=== PATIENT | female | born 2000 | race Caucasian/White ===

== ENCOUNTER 2022-08-14 10:14 | Outpatient (CLI) | payer BC, SELFPAY ==
[2022-08-14 15:27] LABS: Chlamydia DNA Amplified* NOT DETECTED (No Detected); GC DNA Amplified* NOT DETECTED (No Detected)
[2022-08-14 17:10] LABS: HIV 1/2/P24 Combo Screen* Negative (Negative)
[2022-08-17 03:02] LABS: HSV Type 1/2 Combined Ab, IgG 0.79 IV
== END 2022-08-14 10:15 | disposition home or self-care (01) ==
PROVIDERS: PCP Family Medicine; Visit Provider Family Medicine
DX: Z11.3 Encounter for screening for infections with a predominantly sexual mode of transmission (principal)
CPT/HCPCS: 86694; 86703; 87491; 87591

== ENCOUNTER 2022-11-10 16:43 | Emergency (ER) | payer BC, SELFPAY ==
[2022-11-10 16:51] VITALS: BP 130/85; PULSE 95; RESP 32; TEMP 36.6; O2SAT 98; BMI 21.1
--- NOTE | 2022-11-10 17:23 | ED.NAVMDI ---
HPI - Nausea/Vomiting/Diarrhea General Chief complaint: Nausea/Vomiting Stated complaint: Cyclical Vomiting - 12 hours of vomiting Time Seen by Provider: 11/10/22 16:50 History of Present Illness HPI Narrative: This 21-year-old female comes in with persistent vomiting over the past 12 hours. She states that she has a history of cyclical vomiting syndrome but has not had any symptoms for the past year. When asked if she uses cannabis she states that she took some alcohol last night which she says has triggered these symptoms. She has not had any fevers. She does report abdominal pain and back pain that she attributes to the recurrent vomiting. Related Data Home Medications Medication Instructions Recorded Confirmed norelgestromin 150 mcg-e.estradiol 1 patch transdermal QWEEK 07/18/22 10/09/22 35 mcg/24 hr weekly transderm patch (Xulane) tretinoin 0.025 % topical cream tube topical 07/18/22 10/09/22 Previous Rx's Medication Instructions Recorded azithromycin 250 mg tablet See Rx Instructions PO .COMPLEX #6 07/18/22 (Zithromax Z-Brian) tabs fluconazole 200 mg tablet 200 mg PO QDAY #2 tabs 07/18/22 methylphenidate HCl 10 mg tablet 10 mg PO BID #60 tabs 08/20/22 clindamycin HCl 150 mg capsule 150 mg PO TID #21 caps 10/09/22 norelgestromin 150 mcg-e.estradiol 1 patch transdermal QWEEK #12 ea 10/12/22 35 mcg/24 hr weekly transderm patch (Xulane) Allergies Allergy/AdvReac Type Severity Reaction Status Date / Time penicillin V Allergy Mild Hives Verified 11/10/22 16:51 amoxicillin Allergy Unknown Hives Verified 11/10/22 16:51 seasonal Allergy Mild sneezing, Uncoded 10/09/22 13:47 coughing, runny nose Review of Systems Status of ROS: Reports: 10 or more systems reviewed and unremarkable except as noted in History and below Narrative: Constitutional: No fevers, no weight gain or loss. Eyes: No discharge. No vision changes. HENT: No congestion, no sore throat, no ear pain. Cardiovascular: No chest pain, no palpitations. Respiratory: No shortness of breath, no wheezes, no cough. Gastrointestinal: Abdominal pain. Nausea and persistent vomiting. Genitourinary: No dysuria, no hematuria. Musculoskeletal: Normal range of motion. Skin: No rashes, no pruritis. Neurological: No dizziness, weakness, sensory change, speech change. Endo/Heme/Allergies: No bruising or bleeding. No polydipsia. Pysch: no suicidality, no anxiety, no insomnia. All other systems reviewed and are negative. [facility] Surgical History History of uvulectomy Status post tonsillectomy Social History Smoking Status: Never smoker Do you use any of these nicotine containing products: None Second hand tobacco smoke exposure: No How often do you have a drink containing alcohol: monthly or less How many standard drinks containing alcohol do you have on a typical day: 3 or 4 How often do you have six or more drinks on one occasion: Never AUDIT-C Alcohol total score: 2 Non-prescribed substance use: denies use service: No Exam Narrative: Exam Narrative: Constitutional: Well-developed, well-nourished, no acute distress. HEENT: Normocephalic, atraumatic. Neck: Normal range of motion. Nontender. Supple. Heart: Regular. No murmurs. Normal rate. Intact distal pulses. Lungs: Clear to auscultation. No chest discomfort. No wheezes, rhonchi, or rales. Abdomen: Normal bowel sounds. Diffuse tenderness throughout the abdomen. Genitalia: Deferred. Back: No midline tenderness. Normal range of motion. Extremities: Normal range of motion. No injury. Skin: Intact. No rash. Warm. No erythema or pallor. Neurologic: No altered sensation. No weakness. Alert and oriented. Psychiatric: No suicidality. No anxiety or depression. No insomnia. Nursing notes and vitals signs are reviewed. Const: Vital Signs, click to edit/add: Vital Signs - 24 hr 11/10/22 16:51 Temperature 98 F Pulse Rate [Pulse Oximeter] 95 Respiratory Rate 32 H Blood Pressure [Ri ght Upper Arm] 130/85 Pulse Oximetry 98 Oxygen Delivery Me thod Room Air Course Vital Signs Vital signs: Initial Vital Signs Temperature 98 F 11/10/22 16:51 Temperature Source Temporal Artery Scan 11/10/22 16:51 Pulse Rate 95 11/10/22 16:51 Pulse Rhythm 11/10/22 16:51 Respiratory Rate 32 H 11/10/22 16:51 Blood Pressure 130/85 11/10/22 16:51 Blood Pressure Mean 100 11/10/22 16:51 Blood Pressure Position Supine 11/10/22 16:51 Pulse Oximetry 98 11/10/22 16:51 Oxygen Delivery Method 11/10/22 16:51 Vital Signs Temperature 98 F 11/10/22 16:51 Pulse Rate 95 11/10/22 16:51 Respiratory Rate 32 H 11/10/22 16:51 Blood Pressure 130/85 11/10/22 16:51 Pulse Oximetry 98 11/10/22 16:51 Oxygen Delivery Method 11/10/22 16:51 Temperature 98 F 11/10/22 16:51 Pulse Rate 95 11/10/22 16:51 Respiratory Rate 32 H 11/10/22 16:51 Blood Pressure 130/85 11/10/22 16:51 Pulse Oximetry 98 11/10/22 16:51 Oxygen Delivery Method 11/10/22 16:51 MDM - Nausea/Vomiting/Diarrhea MDM Narrative Medical decision making narrative: This patient comes in with persistent vomiting and states that she has cyclical vomiting syndrome. She reports that she has been taking good care of herself and has not had any episodes in the past year. She took some alcohol last night and feels that this triggered these symptoms. An IV was established and labs were drawn. These returned with reassuring findings. She received a L of normal saline intravenously along with Haldol 5 mg, Zofran 4 mg, and Toradol 30 mg. This brought great relief to her symptoms. She states that she is really feeling well at this time and is okay to return home. She states that she does have Zofran at home that can be used if needed. Lab Data Labs: Lab Results 11/10/22 11/10/22 Range/Units 17:34 17:34 WBC 10.09 (4.50-11.00) K/uL RBC 4.55 (4.00-5.20) m/uL Hgb 13.1 (12.0-16.0) gm/dL Hct 38.9 (33.0-51.0) % MCV 86 (80-100) fL MCH 29 (26-34) pg MCHC 34 (32-36) gm/dL RDW Coeff of Girish 12.1 (11.5-15.5) % Plt Count 295 (140-440) K/uL Neut % (Auto) 91.9 H (42.0-72.0) % Lymph % (Auto) 6.4 L (20-44) % [place] % (Auto) 1.4 (0.0-11.0) % Eos % (Auto) 0.0 (0.0-7.0) % Baso % (Auto) 0.0 (0.0-3.0) % Neut # (Auto) 9.30 H (1.7-7.0) K/uL Lymph # (Auto) 0.60 L (0.90-2.90) K/uL [place] # (Auto) 0.10 (0.00-0.90) K/UL Eos # (Auto) 0.00 (0.00-0.50) K/uL Baso # (Auto) 0.00 (0.00-0.30) K/uL Sodium 140 (135-149) mmol/L Potassium 3.7 (3.6-5.1) mmol/L Chloride 109 (96-114) mmol/L Carbon Dioxide 13 L (20-32) mmol/L BUN 11 (5-24) mg/dL Creatinine 0.7 (0.5-1.5) mg/dL Estimated Creat Clear 120.83 Estimated GFR 125 ml/min Glucose 159 H (60-115) mg/dL Calcium 9.8 (8.4-10.6) mg/dL Total Bilirubin 0.9 (0.1-1.5) mg/dL Direct Bilirubin 0.1 (0.0-0.5) mg/dL AST 36 H (12-35) U/L ALT 40 H (4-35) U/L Alkaline Phosphatase 58 (40-150) U/L Total Protein 8.8 H (6.0-8.3) g/dL Albumin 5.1 H (3.3-5.0) g/dL Lipase 37 (23-300) U/L Discharge Plan Discharge Clinical Impression: Cyclical vomiting Patient Disposition: Home w/ Parent or Adult Condition: Improved Additional Instructions: Increase diet as tolerated. Use [id number] medicines as needed and directed. Follow up with MD or return if worsening. Prescriptions: No Action Xulane 150-35 mcg/24 hr patch weekly 1 patch transdermal QWEEK tretinoin 0.025 % cream topical azithromycin [Zithromax Z-Brian] 250 mg tablet See Rx Instructions PO .COMPLEX Qty: 6 0RF Rx Instructions: For 250 mg dose pack: take 500 mg today (day 1), then 250 mg for 4 days (days 2-5) PO fluconazole 200 mg tablet 200 mg PO QDAY Qty: 2 1RF clindamycin HCl 150 mg capsule 150 mg PO TID Qty: 21 2RF methylphenidate HCl 10 mg tablet 10 mg PO BID Qty: 60 0RF Xulane 150-35 mcg/24 hr patch weekly 1 patch transdermal QWEEK Qty: 12 4RF Rx Instructions: apply once weekly for 11 weeks of a 12-week cycle Follow Up/Referrals: Randell Fxo MD [Primary Care Provider] - Stand Alone Forms: [employer] Info Instructions
[2022-11-10] MEDS: KETOROLAC 30 MG/ML inj IVP (17:40)
[2022-11-10] MEDS: ONDANSETRON 2 MG/ML inj 4 MG IVP (17:40)
[2022-11-10] MEDS: HALOPERIDOL 5 MG/ML INJ IV (17:40)
[2022-11-10] MEDS: 0.9 % SODIUM CHLORIDE 1000 ml 1,000 ML IV (17:41)
[2022-11-10 17:42] LABS: Hematocrit 38.9 % (33.0-51.0); Hemoglobin* 13.1 gm/dL (12.0-16.0); Immature Granulocytes Abs Auto 0.03 K/uL (0.00-0.30); Immature Granulocytes Pct Auto 0.3 %; Lymphocytes Percent Auto 6.4 % (20-44); Mean Corpuscular HGB Conc 34 gm/dL (32-36); Mean Corpuscular Hemoglobin 29 pg (26-34); Mean Corpuscular Volume 86 fL (80-100); Monocytes Percent Auto 1.4 % (0.0-11.0); Neutrophils Percent Auto 91.9 % (42.0-72.0); Platelet Count* 295 K/uL (140-440); RDW Coefficient of Variation % 12.1 % (11.5-15.5); Red Blood Count 4.55 m/uL (4.00-5.20); White Blood Count* 10.09 K/uL (4.50-11.00)
[2022-11-10 17:52] LABS: Slide Review Reflex No
[2022-11-10 17:56] LABS: Albumin* 5.1 g/dL (3.3-5.0); Chloride* 109 mmol/L (96-114); Potassium* 3.7 mmol/L (3.6-5.1); Sodium* 140 mmol/L (135-149)
[2022-11-10 17:59] LABS: Alkaline Phosphatase* 58 U/L (40-150); Aspartate Amino Transferase* 36 U/L (12-35); Bilirubin Direct* 0.1 mg/dL (0.0-0.5); Bilirubin Total* 0.9 mg/dL (0.1-1.5); Blood Urea Nitrogen* 11 mg/dL (5-24); Calcium* 9.8 mg/dL (8.4-10.6); Carbon Dioxide* 13 mmol/L (20-32); Creatinine* 0.7 mg/dL (0.5-1.5); Est. Creatinine Clearance* 120.83; Estimated Glomerular Filt Rate 125 ml/min; Glucose* 159 mg/dL (60-115); Lipase* 37 U/L (23-300); Total Protein* 8.8 g/dL (6.0-8.3)
[2022-11-10 18:21] LABS: Alanine Aminotransferase* 40 U/L (4-35)
== END 2022-11-10 18:51 | disposition home or self-care (01) ==
PROVIDERS: Emergency Provider Emergency Medicine Emergency Medical Services; PCP Family Medicine
DX: R11.15 Cyclical vomiting syndrome unrelated to migraine (principal)
CPT/HCPCS: 36415; 80048; 80076; 83690; 85025; 96360; 96374; 96375; 99284; J1630; J1885; J2405; J7030

== ENCOUNTER 2023-03-27 07:00 | Emergency (ER) | payer BC, SELFPAY ==
[2023-03-27 07:04] VITALS: BP 126/80; PULSE 107; RESP 16; TEMP 37.1; O2SAT 98; BMI 20.5
--- NOTE | 2023-03-27 07:36 | ED_ITS ---
HPI - General Adult General Time Seen by Provider: 07:36 Date Seen: 04/10/23 Chief complaint: Unspecified Complaint, Adult Stated complaint: hemorrhoids Time Seen by Provider: 03/27/23 07:27 Source: patient, RN notes reviewed and old records reviewed Mode of arrival: ambulatory Limitations: no limitations History of Present Illness HPI narrative: 22-year-old female who comes in today with concern for painful hemorrhoid. Patient started having increased pain yesterday. Has had hemorrhoids in the past but says this feels different. Denies constipation or diarrhea. Has not taken anything for this. She initially said that the hemorrhoid was on ?the vaginal wall and when asked to clarify set that the hemorrhoid was on the front side of the rectum. Related Data Home Medications Medication Instructions Recorded Confirmed norelgestromin 150 mcg-e.estradiol 1 patch transdermal QWEEK 07/18/22 03/27/23 35 mcg/24 hr weekly transderm patch (Xulane) tretinoin 0.025 % topical cream tube topical 07/18/22 10/09/22 tramadol 03/27/23 Previous Rx's Medication Instructions Recorded azithromycin 250 mg tablet See Rx Instructions PO .COMPLEX #6 07/18/22 (Zithromax Z-Brian) tabs fluconazole 200 mg tablet 200 mg PO QDAY #2 tabs 07/18/22 methylphenidate HCl 10 mg tablet 10 mg PO BID #60 tabs 08/20/22 clindamycin HCl 150 mg capsule 150 mg PO TID #21 caps 10/09/22 norelgestromin 150 mcg-e.estradiol 1 patch transdermal QWEEK #12 ea 10/12/22 35 mcg/24 hr weekly transderm patch (Xulane) hydrocortisone-pramoxine 2.5 %-1 % 1 applic [place] QID PRN #30 grams 03/27/23 rectal cream (Analpram-HC) lidocaine 5 % topical cream 1 applic topical QID PRN pain #15 03/27/23 grams Allergies Allergy/AdvReac Type Severity Reaction Status Date / Time penicillin V Allergy Mild Hives Verified 03/27/23 07:08 amoxicillin Allergy Unknown Hives Verified 03/27/23 07:08 seasonal Allergy Mild sneezing, Uncoded 10/09/22 13:47 coughing, runny nose PFSH PFSH Surgical History History of uvulectomy ?Z90.89 - Acquired absence of other organs (ICD-10) Status post tonsillectomy ?Z90.89 - Acquired absence of other organs (ICD-10) Social History Smoking Status: Never smoker Do you use any of these nicotine containing products: None Second hand tobacco smoke exposure: No How often do you have a drink containing alcohol: 2-4 times a month How many standard drinks containing alcohol do you have on a typical day: 3 or 4 How often do you have six or more drinks on one occasion: Never AUDIT-C Alcohol total score: 3 Non-prescribed substance use: denies use service: No Exam Narrative: Exam Narrative: General: well nourished , NAD Head: Atraumatic and normocephalic ENT: External ears and external nose are normal Eyes: Conjunctiva clear, pupils are equal reactive, external ocular motions are intact Neck: Full spontaneous range of motion of the neck Lungs: No respiratory distress Musculoskeletal: No tenderness or deformity Neurologic: No gross focal neurologic deficits Skin: No rashes Psych: Mood and affect are appropriate : Two 3-4 mm external hemorrhoids, one anterior and one posterior. The anterior hemorrhoid is quite tender with no discoloration Const: Vital Signs, click to edit/add: Vital Signs - 24 hr 03/27/23 07:04 Temperature 98.7 F Pulse Rate [Left P ulse Oximeter] 107 H Respiratory Rate 16 Blood Pressure [Ri ght Upper Arm] 126/80 Pulse Oximetry 98 Oxygen Delivery Me thod Room Air Course Course Hospital Course: Patient seen and examined, prior records are reviewed. Patient presents with concern about a painful hemorrhoid. On exam, there is a small anterior hemorrhoid that is quite tender and somewhat firm. Discussed continued symptomatic and conservative treatment of this. Patient was quite upset. She initially indicated that she felt like I was not listening to her when she said she had a hemorrhoid on the vaginal wall. I discussed with her that I would ask for clarification because hemorrhoids do not occur in the vagina and if her pain was actually in the vaginal area, would represent a different problem such as a brought line gland abscess or vaginal hematoma. She also asked about other t reatment for this hemorrhoid including banding, we discussed that this is a treatment for chronic hemorrhoids and not acutely done in the emergency department. Could consider excision of this hemorrhoid but given the size and timeline, conservative treatment is more appropriate this time. She will be referred to surgery clinic for follow-up treatment. Vital Signs Vital signs: Initial Vital Signs Temperature 98.7 F 03/27/23 07:04 Temperature Source Temporal Artery Scan 03/27/23 07:04 Pulse Rate 107 H 03/27/23 07:04 Respiratory Rate 16 03/27/23 07:04 Blood Pressure 126/80 03/27/23 07:04 Blood Pressure Mean 95 03/27/23 07:04 Blood Pressure Position Standing 03/27/23 07:04 Pulse Oximetry 98 03/27/23 07:04 Oxygen Delivery Method Room Air 03/27/23 07:04 Vital Signs Temperature 98.7 F 03/27/23 07:04 Pulse Rate 107 H 03/27/23 07:04 Respiratory Rate 16 03/27/23 07:04 Blood Pressure 126/80 03/27/23 07:04 Pulse Oximetry 98 03/27/23 07:04 Oxygen Delivery Method Room Air 03/27/23 07:04 Temperature 98.7 F 03/27/23 07:04 Pulse Rate 107 H 03/27/23 07:04 Respiratory Rate 16 03/27/23 07:04 Blood Pressure 126/80 03/27/23 07:04 Pulse Oximetry 98 03/27/23 07:04 Oxygen Delivery Method Room Air 03/27/23 07:04 Discharge Plan Discharge Clinical Impression: External hemorrhoid, thrombosed Patient Disposition: Home, Self-Care Condition: Stable Instructions: Hemorrhoids (DC) Additional Instructions: Sitz baths and ice packs as directed. [facility] at [phone] to schedule a follow-up appointment Activity Level: Activity as Tolerated Discharge Diet: Regular Prescriptions: New lidocaine 5 % cream 1 applic topical QID PRN (Reason: pain) Qty: 15 0RF hydrocortisone-pramoxine [Analpram-HC] 2.5-1 % cream 1 applic FL QID PRNQty: 30 0RF No Action Xulane 150-35 mcg/24 hr patch weekly 1 patch transdermal QWEEK tretinoin 0.025 % cream topical azithromycin [Zithromax Z-Brian] 250 mg tablet See Rx Instructions PO .COMPLEX Qty: 6 0RF Rx Instructions: For 250 mg dose pack: take 500 mg today (day 1), then 250 mg for 4 days (days 2-5) PO fluconazole 200 mg tablet 200 mg PO QDAY Qty: 2 1RF clindamycin HCl 150 mg capsule 150 mg PO TID Qty: 21 2RF tramadol methylphenidate HCl 10 mg tablet 10 mg PO BID Qty: 60 0RF Xulane 150-35 mcg/24 hr patch weekly 1 patch transdermal QWEEK Qty: 12 4RF Rx Instructions: apply once weekly for 11 weeks of a 12-week cycle Follow Up/Referrals: Randell Fox MD [Primary Care Provider] - Stand Alone Forms: [employer] Info Instructions
--- NOTE | 2023-03-27 08:00 | ED.NURSE ---
Incident Response Coordinator did accompany Dr. Bauman for Pt exam.
== END 2023-03-27 08:12 | disposition home or self-care (01) ==
LOC: ED 08:08
PROVIDERS: Emergency Provider Family Medicine; PCP Family Medicine
DX: K64.5 Perianal venous thrombosis (principal)
CPT/HCPCS: 99283

== ENCOUNTER 2023-04-08 08:01 | Emergency (ER) | payer BC, SELFPAY ==
[2023-04-08 08:10] VITALS: BP 153/71; PULSE 90; RESP 16; TEMP 36.2; O2SAT 100; BMI 20.5
--- NOTE | 2023-04-08 08:24 | ED_ITS ---
HPI - Nausea/Vomiting/Diarrhea General Chief complaint: Nausea/Vomiting Stated complaint: [facility] episode, vomiting Time Seen by Provider: 04/08/23 08:05 History of Present Illness HPI Narrative: This 22-year-old female comes in with persistent vomiting. She has a history of cyclical vomiting syndrome. She states that she does use marijuana recreationally. She states now that she has also had some diarrhea. Related Data Home Medications Medication Instructions Recorded Confirmed tretinoin 0.025 % topical cream tube topical 07/18/22 04/04/23 Previous Rx's Medication Instructions Recorded methylphenidate HCl 10 mg tablet 10 mg PO BID #60 tabs 08/20/22 norelgestromin 150 mcg-e.estradiol 1 patch transdermal QWEEK #12 ea 10/12/22 35 mcg/24 hr weekly transderm patch (Xulane) tramadol 50 mg tablet 50 mg PO Q8H PRN pain #10 tabs 03/28/23 triamcinolone acetonide 0.1 % 1 applic topical BID #15 grams 03/28/23 topical cream lidocaine 5 % topical cream 1 applic topical QID PRN pain #15 03/29/23 grams hydrocortisone-pramoxine 2.5 %-1 % 1 applic [place] QID PRN hemorrhoids 04/04/23 rectal cream (Analpram-HC) #30 grams sennosides 8.6 mg capsule (senna) 8.6 mg PO BID PRN constipation #90 04/04/23 caps tramadol 50 mg tablet 50 mg PO Q8H PRN pain #10 tabs 04/04/23 Allergies Allergy/AdvReac Type Severity Reaction Status Date / Time penicillin V Allergy Mild Hives Verified 04/04/23 15:01 amoxicillin Allergy Unknown Hives Verified 04/04/23 15:01 seasonal Allergy Mild sneezing, Uncoded 04/04/23 15:01 coughing, runny nose Review of Systems Status of ROS: Reports: 10 or more systems reviewed and unremarkable except as noted in History and below Narrative: Constitutional: No fevers, no weight gain or loss. Eyes: No discharge. No vision changes. HENT: No congestion, no sore throat, no ear pain. Cardiovascular: No chest pain, no palpitations. Respiratory: No shortness of breath, no wheezes, no cough. Gastrointestinal: Persistent vomiting. Genitourinary: No dysuria, no hematuria. Musculoskeletal: Normal range of motion. Skin: No rashes, no pruritis. Neurological: No dizziness, weakness, sensory change, speech change. Endo/Heme/Allergies: No bruising or bleeding. No polydipsia. Pysch: no suicidality, no anxiety, no insomnia. All other systems reviewed and are negative. [facility] Medical History (Updated 04/08/23 @ 09:42 by Randell Whiteside MD) Vulvovaginitis ?N76.0 - Acute vaginitis (ICD-10) Surgical History History of uvulectomy ?Z90.89 - Acquired absence of other organs (ICD-10) Status post tonsillectomy ?Z90.89 - Acquired absence of other organs (ICD-10) Social History Smoking Status: Never smoker Do you use any of these nicotine containing products: None Second hand tobacco smoke exposure: No How often do you have a drink containing alcohol: 2-4 times a month How many standard drinks containing alcohol do you have on a typical day: 3 or 4 How often do you have six or more drinks on one occasion: Never AUDIT-C Alcohol total score: 3 Non-prescribed substance use: denies use service: No Exam Narrative: Exam Narrative: Constitutional: Well-developed, well-nourished, no acute distress. HEENT: Normocephalic, atraumatic. Neck: Normal range of motion. Nontender. Supple. Heart: Intact distal pulses. Lungs: No chest discomfort. No wheezes, rhonchi, or rales. Abdomen: Diffuse abdominal pain. Persistent vomiting and nausea. Back: Normal range of motion. Extremities: Normal range of motion. No injury. Skin: Intact. No rash. Warm. No erythema or pallor. Neurologic: No altered sensation. No weakness. Alert and oriented. Psychiatric: No suicidality. No anxiety or depression. No insomnia. Nursing notes and vitals signs are reviewed. Const: Vital Signs, click to edit/add: Vital Signs - 24 hr 04/08/23 08:10 Temperature 97.1 F L Pulse Rate [Left P ulse Oximeter] 90 Respiratory Rate 16 Blood Pressure [Le ft Upper Arm] 153/71 H Pulse Oximetry 100 Oxygen Delivery Me thod Room Air Course Vital Signs Vital signs: Initial Vital Signs Temperature 97.1 F L 04/08/23 08:10 Temperature Source Temporal Artery Scan 04/08/23 08:10 Pulse Rate 90 04/08/23 08:10 Pulse Rhythm Regular 04/08/23 08:10 Respiratory Rate 16 04/08/23 08:10 Blood Pressure 153/71 H 04/08/23 08:10 Blood Pressure Mean 98 04/08/23 08:10 Blood Pressure Position Sitting 04/08/23 08:10 Pulse Oximetry 100 04/08/23 08:10 Oxygen Delivery Method Room Air 04/08/23 08:10 Vital Signs Temperature 97.1 F L 04/08/23 08:10 Pulse Rate 90 04/08/23 08:10 Respiratory Rate 16 04/08/23 08:10 Blood Pressure 153/71 H 04/08/23 08:10 Pulse Oximetry 100 04/08/23 08:10 Oxygen Delivery Method Room Air 04/08/23 08:10 Temperature 97.1 F L 04/08/23 08:10 Pulse Rate 90 04/08/23 08:10 Respiratory Rate 16 04/08/23 08:10 Blood Pressure 153/71 H 04/08/23 08:10 Pulse Oximetry 100 04/08/23 08:10 Oxygen Delivery Method Room Air 04/08/23 08:10 MDM - Nausea/Vomiting/Diarrhea MDM Narrative Medical decision making narrative: This patient comes in with recurrent episode of cyclical vomiting syndrome. She does use marijuana and has had symptoms like this in the past. An IV was established where she received a L of normal saline and 5 mg of Haldol. This brought great relief to her symptoms. She states that she has had this in the past with good results. I stated that it is likely the marijuana that is triggering symptoms like this. Lab results returned with reassuring findings. The patient states that she feels okay to return home. Lab Data Labs: Lab Results 04/08/23 Range/Units 08:35 WBC 13.64 H (4.50-11.00) K/uL RBC 5.01 (4.00-5.20) m/uL Hgb 14.4 (12.0-16.0) gm/dL Hct 42.9 (33.0-51.0) % MCV 86 (80-100) fL MCH 29 (26-34) pg MCHC 34 (32-36) gm/dL RDW Coeff of Girish 11.9 (11.5-15.5) % Plt Count 407 (140-440) K/uL Neut % (Auto) 81.9 H (42.0-72.0) % Lymph % (Auto) 14.2 L (20-44) % [place] % (Auto) 3.4 (0.0-11.0) % Eos % (Auto) 0.2 (0.0-7.0) % Baso % (Auto) 0.1 (0.0-3.0) % Neut # (Auto) 11.20 H (1.7-7.0) K/uL Lymph # (Auto) 1.90 (0.90-2.90) K/uL [place] # (Auto) 0.50 (0.00-0.90) K/UL Eos # (Auto) 0.00 (0.00-0.50) K/uL Baso # (Auto) 0.00 (0.00-0.30) K/uL Sodium 140 (135-149) mmol/L Potassium 3.7 (3.6-5.1) mmol/L Chloride 103 (96-114) mmol/L Carbon Dioxide 20 (20-32) mmol/L BUN 12 (5-24) mg/dL Creatinine 0.8 (0.5-1.5) mg/dL Estimated Creat Clear 104.82 Estimated GFR 105 ml/min Glucose 141 H (60-115) mg/dL Calcium 10.6 (8.4-10.6) mg/dL Discharge Plan Discharge Clinical Impression: Cyclical vomiting syndrome Patient Disposition: Home, Self-Care Condition: Improved Additional Instructions: Increase diet as tolerated. Avoid cannabis products. Follow up with MD return if worsening. Prescriptions: No Action tretinoin 0.025 % cream topical triamcinolone acetonide 0.1 % cream 1 applic topical BID Qty: 15 0RF tramadol 50 mg tablet 50 mg PO Q8H PRN (Reason: pain) Qty: 10 0RF lidocaine 5 % cream 1 applic topical QID PRN (Reason: pain) Qty: 15 2RF hydrocortisone-pramoxine [Analpram-HC] 2.5-1 % cream 1 applic [place] QID PRN (Reason: hemorrhoids) Qty: 30 0RF tramadol 50 mg tablet 50 mg PO Q8H PRN (Reason: pain) Qty: 10 0RF senna 8.6 mg capsule 8.6 mg PO BID PRN (Reason: constipation) Qty: 90 0RF methylphenidate HCl 10 mg tablet 10 mg PO BID Qty: 60 0RF Xulane 150-35 mcg/24 hr patch weekly 1 patch transdermal QWEEK Qty: 12 4RF Rx Instructions: apply once weekly for 11 weeks of a 12-week cycle Follow Up/Referrals: Randell Fox MD [Primary Care Provider] - Stand Alone [facility] Info [facility]
[2023-04-08] MEDS: HALOPERIDOL 5 MG/ML INJ IV (08:45)
[2023-04-08] MEDS: 0.9 % SODIUM CHLORIDE 1000 ml 1,000 ML IV (08:45)
[2023-04-08 08:57] LABS: Basophils Percent Auto 0.1 % (0.0-3.0); Eosinophils Percent Auto 0.2 % (0.0-7.0); Hematocrit 42.9 % (33.0-51.0); Hemoglobin* 14.4 gm/dL (12.0-16.0); Immature Granulocytes Pct Auto 0.2 %; Lymphocytes Percent Auto 14.2 % (20-44); Mean Corpuscular HGB Conc 34 gm/dL (32-36); Mean Corpuscular Hemoglobin 29 pg (26-34); Mean Corpuscular Volume 86 fL (80-100); Monocytes Percent Auto 3.4 % (0.0-11.0); Neutrophils Percent Auto 81.9 % (42.0-72.0); Platelet Count* 407 K/uL (140-440); RDW Coefficient of Variation % 11.9 % (11.5-15.5); Red Blood Count 5.01 m/uL (4.00-5.20); White Blood Count* 13.64 K/uL (4.50-11.00)
[2023-04-08 09:03] LABS: Slide Review Reflex No
[2023-04-08 09:12] LABS: Chloride* 103 mmol/L (96-114); Potassium* 3.7 mmol/L (3.6-5.1); Sodium* 140 mmol/L (135-149)
[2023-04-08 09:15] LABS: Blood Urea Nitrogen* 12 mg/dL (5-24); Carbon Dioxide* 20 mmol/L (20-32); Creatinine* 0.8 mg/dL (0.5-1.5); Est. Creatinine Clearance* 104.82; Estimated Glomerular Filt Rate 105 ml/min; Glucose* 141 mg/dL (60-115)
[2023-04-08 09:16] LABS: Calcium* 10.6 mg/dL (8.4-10.6)
--- NOTE | 2023-04-08 09:40 | ED.NURSE ---
Patient up to commode independently, voided and small formed bowel movement.
[2023-04-08 09:41] VITALS: BP 138/88; PULSE 78; RESP 16; O2SAT 98
== END 2023-04-08 10:26 | disposition home or self-care (01) ==
PROVIDERS: Emergency Provider Emergency Medicine Emergency Medical Services; PCP Family Medicine
DX: R11.15 Cyclical vomiting syndrome unrelated to migraine (principal)
CPT/HCPCS: 36415; 80048; 85025; 96374; 99283; 99284; J1630; J7030

== ENCOUNTER 2023-06-01 14:02 | Emergency (ER) | payer BC, SELFPAY ==
[2023-06-01 14:18] VITALS: BP 155/100; PULSE 86; RESP 18; TEMP 36.6; O2SAT 100; BMI 21.3
[2023-06-01 14:48] LABS: Basophils Percent Auto 0.1 % (0.0-3.0); Hematocrit 41.4 % (33.0-51.0); Hemoglobin* 13.8 gm/dL (12.0-16.0); Immature Granulocytes Pct Auto 0.9 %; Lymphocytes Percent Auto 8.4 % (20-44); Mean Corpuscular HGB Conc 33 gm/dL (32-36); Mean Corpuscular Hemoglobin 29 pg (26-34); Mean Corpuscular Volume 86 fL (80-100); Monocytes Percent Auto 3.5 % (0.0-11.0); Neutrophils Percent Auto 87.1 % (42.0-72.0); Platelet Count* 204 K/uL (140-440); RDW Coefficient of Variation % 12.7 % (11.5-15.5); Red Blood Count 4.81 m/uL (4.00-5.20); White Blood Count* 14.08 K/uL (4.50-11.00)
[2023-06-01] MEDS: LACTATED RINGERS 1000 ML 1,000 ML IV (14:52)
[2023-06-01] MEDS: HALOPERIDOL 5 MG/ML INJ IV (14:52)
[2023-06-01 15:00] LABS: Chloride* 107 mmol/L (96-114); Sodium* 138 mmol/L (135-149)
[2023-06-01 15:01] LABS: Potassium* 4.1 mmol/L (3.6-5.1)
[2023-06-01 15:03] LABS: Anion Gap 17 mEq/L (7-15); Carbon Dioxide* 14 mmol/L (20-32); Creatinine* 0.7 mg/dL (0.5-1.5); Est. Creatinine Clearance* 124.23; Estimated Glomerular Filt Rate 124 ml/min
[2023-06-01 15:04] LABS: Blood Urea Nitrogen* 11 mg/dL (5-24); Calcium* 9.8 mg/dL (8.4-10.6); Glucose* 182 mg/dL (60-115)
[2023-06-01 15:06] LABS: Slide Review Reflex Yes
--- NOTE | 2023-06-01 15:07 | ED_ITS ---
HPI - General Adult General Date Seen: 06/01/23 Chief complaint: Nausea/Vomiting Stated complaint: Vomiting Time Seen by Provider: 06/01/23 14:20 Source: patient Mode of arrival: ambulatory Limitations: no limitations History of Present Illness HPI narrative: Patient is a 22-year-old female with a history of gastroparesis and cannabinoid hyperemesis syndrome presented to [facility] for nausea and vomiting. Symptoms have been going on for the past 8 hours. All of his speaking to her she spent the entire time dry heaving. She has not been to eat or drink anything. She has tried her home Zofran could could not keep the pills down. When I asked her if she smoked anything she became angry with me is that THC. I asked her how much and she responded ?I do not Wanna fucking talk about it ?within states she knows for sure is her gastroparesis causing the symptoms. S denies chest pain, shortness of breath, headache, dizziness, dysuria. Patient has been to this emergency department several times in the past with similar symptoms Related Data Home Medications Medication Instructions Recorded Confirmed tretinoin 0.025 % topical cream tube topical 07/18/22 04/04/23 Previous Rx's Medication Instructions Recorded methylphenidate HCl 10 mg tablet 10 mg PO BID #60 tabs 08/20/22 tramadol 50 mg tablet 50 mg PO Q8H PRN pain #10 tabs 03/28/23 triamcinolone acetonide 0.1 % 1 applic topical BID #15 grams 03/28/23 topical cream lidocaine 5 % topical cream 1 applic topical QID PRN pain #15 03/29/23 grams hydrocortisone-pramoxine 2.5 %-1 % 1 applic NM QID PRN hemorrhoids 04/04/23 rectal cream (Analpram-HC) #30 grams sennosides 8.6 mg capsule (senna) 8.6 mg PO BID PRN constipation #90 04/04/23 caps tramadol 50 mg tablet 50 mg PO Q8H PRN pain #10 tabs 04/04/23 norelgestromin 150 mcg-e.estradiol 1 patch transdermal QWEEK #12 ea 04/12/23 35 mcg/24 hr weekly transderm patch (Xulane) Allergies Allergy/AdvReac Type Severity Reaction Status Date / Time penicillin V Allergy Mild Hives Verified 04/04/23 15:01 amoxicillin Allergy Unknown Hives Verified 04/04/23 15:01 seasonal Allergy Mild sneezing, Uncoded 04/04/23 15:01 coughing, runny nose Review of Systems Status of ROS: Reports: 10 or more systems reviewed and unremarkable except as noted in History and below [facility] Medical History Vulvovaginitis ?N76.0 - Acute vaginitis (ICD-10) Surgical History History of uvulectomy ?Z90.89 - Acquired absence of other organs (ICD-10) Status post tonsillectomy ?Z90.89 - Acquired absence of other organs (ICD-10) Social History Smoking Status: Never smoker Do you use any of these nicotine containing products: None Second hand tobacco smoke exposure: No How often do you have a drink containing alcohol: 2-4 times a month How many standard drinks containing alcohol do you have on a typical day: 3 or 4 How often do you have six or more drinks on one occasion: Never AUDIT-C Alcohol total score: 3 Non-prescribed substance use: denies use service: No Exam Narrative: Exam Narrative: Const: Well-nourished, Well-developed, in moderate distress. Is current the retching Eyes: PERRL, no conjunctival injection, and symmetrical lids ENMT: Atraumatic external nose and ears. Moist mucous membranes. Neck: Symmetric, trachea midline, No thyromegaly. CVS: RRR, No murmurs or gallops. Peripheral pulses 2+ and equal in all extremities RESP: Unlabored respiratory effort. Clear to auscultation bilaterally. GI: Nontender/Nondistended, No rebound or guarding. MSK:Extremities w/o deformity, Normal Active ROM Skin: Warm, Dry. No rashes or lesions. Neuro: Normal Muscle tone, No focal neurological deficits. Psych: Awake, Alert, & Oriented x3. Appropriate mood and affect. Const: Vital Signs, click to edit/add: Vital Signs - 24 hr 06/01/23 14:18 Temperature 97.8 F Pulse Rate [Right Pulse Oximeter] 86 Respiratory Rate 18 Blood Pressure [Ri ght Upper Arm] 155/100 H Pulse Oximetry 100 Oxygen Delivery Me thod Room Air Course Vital Signs Vital signs: Initial Vital Signs Temperature 97.8 F 06/01/23 14:18 Temperature Source Temporal Artery Scan 06/01/23 14:18 Pulse Rate 86 06/01/23 14:18 Respiratory Rate 18 06/01/23 14:18 Blood Pressure 155/100 H 06/01/23 14:18 Blood Pressure Mean 118 H 06/01/23 14:18 Blood Pressure Position Sitting 06/01/23 14:18 Pulse Oximetry 100 06/01/23 14:18 Oxygen Delivery Method Room Air 06/01/23 14:18 Vital Signs Temperature 97.8 F 06/01/23 14:18 Pulse Rate 86 06/01/23 14:18 Respiratory Rate 18 06/01/23 14:18 Blood Pressure 155/100 H 06/01/23 14:18 Pulse Oximetry 100 06/01/23 14:18 Oxygen Delivery Method Room Air 06/01/23 14:18 Temperature 97.8 F 06/01/23 14:18 Pulse Rate 86 06/01/23 14:18 Respiratory Rate 18 06/01/23 14:18 Blood Pressure 155/100 H 06/01/23 14:18 Pulse Oximetry 100 06/01/23 14:18 Oxygen Delivery Method Room Air 06/01/23 14:18 Medical Decision Making [facility] Narrative Medical decision making narrative: Patient's 19st female presenting for an hours of nausea and vomiting. History of gastroparesis and cannabinoid hyperemesis syndrome. Denies tried speaking about marijuana use taking upset with me in says is all due to her gastr oparesis. Tried to explain the can wait can worsen the gastroparesis but she would not listen to me. We will give her Haldol for her symptoms and that has helped every time in the past. Also ordered CBC, BMP, serum test. Her lab work returned showing a white count of 14.0 and is likely secondary to the retching. She also also given a L of normal saline possible dehydration. BMP showed no concerning abnormalities and test was negative. His symptoms resolved after the although she feels good with discharge. She will be discharged home is agreeable to this plan. Lab Data Labs: Lab Results 06/01/23 Range/Units 14:44 WBC 14.08 H (4.50-11.00) K/uL RBC 4.81 (4.00-5.20) m/uL Hgb 13.8 (12.0-16.0) gm/dL Hct 41.4 (33.0-51.0) % MCV 86 (80-100) fL MCH 29 (26-34) pg MCHC 33 (32-36) gm/dL RDW Coeff of Girish 12.7 (11.5-15.5) % Plt Count 204 (140-440) K/uL Neut % (Auto) 87.1 H (42.0-72.0) % Lymph % (Auto) 8.4 L (20-44) % [place] % (Auto) 3.5 (0.0-11.0) % Eos % (Auto) 0.0 (0.0-7.0) % Baso % (Auto) 0.1 (0.0-3.0) % Neut # (Auto) 12.30 H (1.7-7.0) K/uL Lymph # (Auto) 1.20 (0.90-2.90) K/uL [place] # (Auto) 0.50 (0.00-0.90) K/UL Eos # (Auto) 0.00 (0.00-0.50) K/uL Baso # (Auto) 0.00 (0.00-0.30) K/uL Abs Immat Gran (auto) 0.10 (0.00-0.30) K/uL Imm/Tot Granulo (auto) 0.9 % Diff Slide Review Acceptable Review (Acceptable) Sodium 138 (135-149) mmol/L Potassium 4.1 (3.6-5.1) mmol/L Chloride 107 (96-114) mmol/L Carbon Dioxide 14 L (20-32) mmol/L Anion Gap 17 H (7-15) mEq/L BUN 11 (5-24) mg/dL Creatinine 0.7 (0.5-1.5) mg/dL Estimated Creat Clear 124.23 Estimated GFR 124 ml/min Glucose 182 H (60-115) mg/dL Calcium 9.8 (8.4-10.6) mg/dL HCG, Qual Negative (Negative) Discharge Plan Discharge Clinical Impression: Cannabinoid hyperemesis syndrome Nausea & vomiting Qualifiers: Vomiting type: unspecified Qualified Code(s): R11.2 - Nausea with vomiting, unspecified Patient Disposition: Home, Self-Care Condition: Stable Instructions: Cannabis Use Disorder (ED) Additional Instructions: Is symptoms are likely secondary to cannabinoid hyperemesis syndrome. Excessive marijuana use can leave the gastroparesis and thus making his symptoms worse. I recommended you abstain from all cannabinoids at this time. Follow up with the primary care provider. Take the Farrah as soon as he started feeling nauseated again to stay ahead of the nausea. Activity Level: No Restrictions Discharge Diet: Regular Prescriptions: No Action tretinoin 0.025 % cream topical triamcinolone acetonide 0.1 % cream 1 applic topical BID Qty: 15 0RF tramadol 50 mg tablet 50 mg PO Q8H PRN (Reason: pain) Qty: 10 0RF lidocaine 5 % cream 1 applic topical QID PRN (Reason: pain) Qty: 15 2RF hydrocortisone-pramoxine [Analpram-HC] 2.5-1 % cream 1 applic NM QID PRN (Reason: hemorrhoids) Qty: 30 0RF tramadol 50 mg tablet 50 mg PO Q8H PRN (Reason: pain) Qty: 10 0RF senna 8.6 mg capsule 8.6 mg PO BID PRN (Reason: constipation) Qty: 90 0RF methylphenidate HCl 10 mg tablet 10 mg PO BID Qty: 60 0RF Xulane 150-35 mcg/24 hr patch weekly 1 patch transdermal QWEEK Qty: 12 4RF Rx Instructions: apply once weekly for 11 weeks of a 12-week cycle Follow Up/Referrals: Randell Fox MD [Primary Care Provider] - Stand Alone Forms: [employer] Info Instructions
[2023-06-01 15:25] LABS: Slide Review Acceptable Review (Acceptable)
[2023-06-01 15:46] LABS: HCG Qualitative Serum* Negative (Negative)
== END 2023-06-01 16:28 | disposition home or self-care (01) ==
LOC: ED 16:19
PROVIDERS: Emergency Provider Student in an Organized Health Care Education/Training Program; PCP Family Medicine
DX: R11.2 Nausea with vomiting, unspecified (principal)
CPT/HCPCS: 36415; 80048; 84703; 85025; 96374; 99283; 99284; J1630; J7120

== ENCOUNTER 2023-11-18 10:27 | Emergency (ER) | payer BC, SELFPAY ==
[2023-11-18 10:31] VITALS: BP 146/89; PULSE 112; RESP 18; TEMP 37.1; O2SAT 98; BMI 21.3
--- NOTE | 2023-11-18 10:51 | ED.NAVMDI ---
HPI - Nausea/Vomiting/Diarrhea General Time Seen by Provider: 10:52 Date Seen: 11/18/23 Chief complaint: Nausea/Vomiting Stated complaint: CVS Time Seen by Provider: 11/18/23 10:43 Source: patient and RN notes reviewed Mode of arrival: ambulatory Limitations: no limitations History of Present Illness HPI Narrative: This 22-year-old female is ambulatory into the ER with history of sickle vomiting, gastroparesis. Her trigger was drinking alcohol Saturday night, she has been throwing up since then. Yesterday she did IV liquid, potassium, note she would still throw some of it up but felt that this helped. She started vomiting again this morning. She did sleep 6 hours last night. She is not as bad as what she normally is. She has Zofran at home but feels that does not work when she is sick like this. When she comes in, typically will get IV Haldol and Zofran. She states the Haldol will make her muscles twitch for about 4 days after use, does not feel like it works all that well either. We discussed use of Zyprexa, reviewed with her that I typically use Zyprexa here. Often times will not even need to use Zofran with the Zyprexa. She would like to try this. No pain, no fevers. MD elicited complaint: nausea and vomiting Related Data Home Medications Medication Instructions Recorded Confirmed tretinoin 0.025 % topical cream tube topical 07/18/22 04/04/23 Previous Rx's Medication Instructions Recorded methylphenidate HCl 10 mg tablet 10 mg PO BID #60 tabs 08/20/22 tramadol 50 mg tablet 50 mg PO Q8H PRN pain #10 tabs 03/28/23 triamcinolone acetonide 0.1 % 1 applic topical BID #15 grams 03/28/23 topical cream lidocaine 5 % topical cream 1 applic topical QID PRN pain #15 03/29/23 grams hydrocortisone-pramoxine 2.5 %-1 % 1 applic MS QID PRN hemorrhoids 04/04/23 rectal cream (Analpram-HC) #30 grams sennosides 8.6 mg capsule (senna) 8.6 mg PO BID PRN constipation #90 04/04/23 caps tramadol 50 mg tablet 50 mg PO Q8H PRN pain #10 tabs 04/04/23 norelgestromin 150 mcg-e.estradiol 1 patch transdermal QWEEK #12 ea 04/12/23 35 mcg/24 hr weekly transderm patch (Xulane) olanzapine 5 mg disintegrating 5 mg PO BID PRN #10 tabs 11/18/23 tablet Allergies Allergy/AdvReac Type Severity Reaction Status Date / Time penicillin V Allergy Mild Hives Verified 04/04/23 15:01 amoxicillin Allergy Unknown Hives Verified 04/04/23 15:01 seasonal Allergy Mild sneezing, Uncoded 04/04/23 15:01 coughing, runny nose Review of Systems Status of ROS: Reports: 6 or more systems reviewed and unremarkable except as noted in History and below [facility] Medical History Vulvovaginitis ?N76.0 - Acute vaginitis (ICD-10) Surgical History History of uvulectomy ?Z90.89 - Acquired absence of other organs (ICD-10) Status post tonsillectomy ?Z90.89 - Acquired absence of other organs (ICD-10) Social History Smoking Status: Never smoker Do you use any of these nicotine containing products: None Second hand tobacco smoke exposure: No How often do you have a drink containing alcohol: 2-4 times a month How many standard drinks containing alcohol do you have on a typical day: 3 or 4 How often do you have six or more drinks on one occasion: Never AUDIT-C Alcohol total score: 3 Non-prescribed substance use: denies use service: No Exam Const: Vital Signs, click to edit/add: Vital Signs - 24 hr 11/18/23 10:31 11/18/23 13:13 11/18/23 13:17 Temperature 98.7 F 98.0 F Pulse Rate [Pulse Oximeter] 112 H 75 Respiratory Rate 18 16 Blood Pressure [Le ft Upper Arm] 146/89 H 140/80 H Pulse Oximetry 98 97 Oxygen Delivery Me thod Room Air Room Air This 22-year-old female is very pleasant, alert, interactive, no apparent distress. Sclera clear, symmetrical facial function. Speech normal, able speak in complete sentences. Neck is supple. Lungs clear without wheezing or crackles, no tachypnea. CV regular but fast, no murmur, normal S1-S2, no S3-S4. Abdomen is soft, nontender, nondistended, no organomegaly, no rebound or guarding. Patient was ambulatory into the ED of her own accord. Documenting provider has reviewed patient's vital signs: yes Course Course ED Course: This patient is her classic symptoms for her cyclical vomiting. Will initiate an IV, check basic chemistries to see that her potassium is stable. Will give her L of IV fluids with normal saline in 5 mg IV Zyprexa to start. We can follow through with Farrah if need be. She is in agreement with this plan. Right now she looks actually pretty good, she states she is not as bad off at this time, came in a bit preemptively. She does not require imaging at this time. Reevaluation(s) Time of Reevaluation #1: 14:04 Reevaluation #1: Patient is awaken from sleeping. She slept most her time here. She does feel better. She has had good success with the Zyprexa. Did review with her that we can use Zyprexa pills, will send a prescription for her. Did review her potassium is just mildly low at 3.3, lactated Ringer's was given as a 2 L of fluids. She will continue to try to increase oral intake at home. We have discussed attempting to avoid her triggers. Vital Signs Vital signs: Initial Vital Signs Temperature 98.7 F 11/18/23 10:31 Temperature Source Temporal Artery Scan 11/18/23 10:31 Pulse Rate 112 H 11/18/23 10:31 Respiratory Rate 18 11/18/23 10:31 Blood Pressure 146/89 H 11/18/23 10:31 Blood Pressure Mean 108 H 11/18/23 10:31 Blood Pressure Position Supine 11/18/23 10:31 Pulse Oximetry 98 11/18/23 10:31 Oxygen Delivery Method Room Air 11/18/23 10:31 Vital Signs Temperature 98.7 F 11/18/23 10:31 Pulse Rate 112 H 11/18/23 10:31 Respiratory Rate 18 11/18/23 10:31 Blood Pressure 146/89 H 11/18/23 10:31 Pulse Oximetry 98 11/18/23 10:31 Oxygen Delivery Method Room Air 11/18/23 10:31 Temperature 98.0 F 11/18/23 13:13 Pulse Rate 75 11/18/23 13:13 Respiratory Rate 16 11/18/23 13:13 Blood Pressure 140/80 H 11/18/23 13:17 Pulse Oximetry 97 11/18/23 13:13 Oxygen Delivery Method Room Air 11/18/23 13:13 Medications Administered Medications: Discontinued Medications Generic Name Dose Route Start Last Admin Trade Name Freq PRN Reason Stop Dose Admin Sodium Chloride 1,000 mls @ 1,000 mls/hr 11/18/23 10:59 11/18/23 11:27 0.9 % Sodium Chloride 1000 Ml IV 11/18/23 11:58 1,000 mls/hr .Q1H ENMA Administration Lactated Ringer's 1,000 mls @ 1,000 mls/hr 11/18/23 13:02 11/18/23 13:00 Lactated Ringers 1000 Ml IV 11/18/23 14:01 1,000 mls/hr .Q1H ONE Administration Olanzapine 5 mg 11/18/23 10:59 11/18/23 11:28 Olanzapine 5 Mg/Ml Inj IVP 11/18/23 11:00 5 mg ONCE ONE Administration MDM - Nausea/Vomiting/Diarrhea Lab Data Attestation: I reviewed the patient's lab results. Labs: Lab Results 11/18/23 Range/Units 11:35 Sodium 138 (135-149) mmol/L Potassium 3.3 L (3.6-5.1) mmol/L Chloride 103 (96-114) mmol/L Carbon Dioxide 15 L (20-32) mmol/L Anion Gap 20 H (7-15) mEq/L BUN 26 H (5-24) mg/dL Creatinine 1.4 (0.5-1.5) mg/dL Estimated Creat Clear 62.12 Estimated GFR 54 ml/min Glucose 153 H (60-115) mg/dL Calcium 10.2 (8.4-10.6) mg/dL Discharge Plan Discharge Clinical Impression: Cyclical vomiting Patient Disposition: Home, Self-Care Condition: Stable Instructions: Cyclic Vomiting Syndrome (ED) Additional Instructions: Can try the Zyprexa for any recurrent symptoms. Recommend taking small frequent sips like 1-2 tsp every 5-10 minutes while awake to help avoid fluid overload and further vomiting. If new are not improving from her symptoms, have progressive symptoms and feel your becoming dehydrated, seek re-evaluation. Do highly recommend avoidance of your triggers for the cyclic vomiting. Activity Level: Activity as Tolerated Prescriptions: New olanzapine 5 mg tablet,disintegrating 5 mg PO BID PRNQty: 10 0RF No Action tretinoin 0.025 % cream topical triamcinolone acetonide 0.1 % cream 1 applic topical BID Qty: 15 0RF tramadol 50 mg tablet 50 mg PO Q8H PRN (Reason: pain) Qty: 10 0RF lidocaine 5 % cream 1 applic topical QID PRN (Reason: pain) Qty: 15 2RF hydrocortisone-pramoxine [Analpram-HC] 2.5-1 % cream 1 applic MS QID PRN (Reason: hemorrhoids) Qty: 30 0RF tramadol 50 mg tablet 50 mg PO Q8H PRN (Reason: pain) Qty: 10 0RF senna 8.6 mg capsule 8.6 mg PO BID PRN (Reason: constipation) Qty: 90 0RF methylphenidate HCl 10 mg tablet 10 mg PO BID Qty: 60 0RF Xulane 150-35 mcg/24 hr patch weekly 1 patch transdermal QWEEK Qty: 12 4RF Rx Instructions: apply once weekly for 11 weeks of a 12-week cycle Follow Up/Referrals: Randell Fox MD [Primary Care Provider] - Stand Alone Forms: [employer] Info Instructions
--- OUTSIDE RECORDS SUMMARY | 2023-11-18 11:07 | XMS_ITS | Clinical Summary ---
Author Name Unknown Organization [facility] Address [address] [place] [id number] Care Team Providers Care Phosphoric Acid Operator Name Role Phone Aimee Vidal MD Primary Care Provider Allergies Active Allergy Reactions Criticality Noted Date Comments Amoxicillin Hives High 06/15/2003 Fluocinolone Nausea 08/08/2012 Medications Medication Sig Dispensed Refills Start Date End Date Status norelgestromin-et hinyl estradiol (ORTHO EVRA) 150-35 MCG/24HR patch Place 1 patch onto the skin once a week Remove old patch and apply new patch onto the skin once a week for 3 weeks (21 days). Do not wear patch week 4 (days 22-28), then repeat. 0 Active EPIDUO FORTE 0.3-2.5 % gel Apply topically daily as needed 1 04/13/2019 Active ondansetron (ZOFRAN-ODT) 8 MG ODT tab Take 8 mg by mouth every 8 hours as needed for nausea 0 07/07/2019 Active metoclopramide (REGLAN) 5 MG tablet Take 1 tablet (5 mg) by mouth 3 times daily as needed (Nausea or Vomiting) 20 tablet 0 04/08/2020 Active promethazine (PHENERGAN) [address] 1 suppository (25 mg) rectally every 6 hours as needed for nausea 10 suppository 0 08/19/2021 Active Active Problems Patient Care Coordination No te Formatting of this note migh t be different from the original. BRIEF EMERGENCY CARE PLAN Acute care plan for the following conditions: Cyclical vomiting syndrome Brief History of Condition: This patient has a longstanding history of cyclical vomiting with negative workup by GI. She has had several visits to the ED in 2019 during which she has occasionally been admitted. Authorized treatments in the Emergency Department: Recommend: - IVF - IM Phenergan - screening BMP - avoid any opioids unless suspicion of acute abdominal process If euvolemic and emesis resolved, discharge home with plan for clear liquids for 12-24 hours (I.e., avoid solid food PO challenge or resuming solids at home) Expected home rescue plan: previously prescribed / home antiemetics Follow up plan after an ED visit: PCP or [facility] Initiated: 11/06/19 Updated: November 06, 2019 Problem Noted Date Diagnosed Date Cyclic vomiting syndrome 02/24/2020 Intractable nausea and vomiting 09/09/2019 Cyclical vomiting 01/28/2018 Immunizations Name Administration Dates Next Due DTAP (<7y) 07/04/1999,04/24/1999,02/06/1999 HIB (PRP-T) 07/04/1999,04/24/1999,02/06/1999 HepB 09/09/1999,02/06/1999,1998 MMR 05/20/2000 Pneumococcal (PCV 7) 08/14/2000,05/20/2000 Poliovirus, inactivated (IPV) 02/13/2000, 999,02/06/1999 TRIHIBIT (DTAP/HIB, <7y) 05/20/2000 Varicella 02/13/2000 Social History Tobacco Use Types Packs/Day Years Used Date Smoking Tobacco: Never Smokeless Tobacco: Never Alcohol Use Standard Drinks/Week Comments Never 0 (1 standard drink = 0.6 oz pur e alcohol) 2-3 times per month AUDIT-C Answer Date Recorded Q1: How often do you have a drink containing alc ohol? Never 11/10/2020 Average Number of Drinks Not on file 021 Frequency of Binge Drinking Not on file 01/2021 Adolescent Education Answer Date Record ed Getting School Help Needed Not on file 07/22 Sex and Gender Information Value Date Recorded Sex Assigned at Not on file Gender Identity Not on file Sexual Orientation Not on file Last Filed Vital Signs Vital Sign Reading Time Taken Comments Blood Pressure 108/72 08/19/2021 2:55 AM [employer] WORK[employer] Pulse 79 08/19/2021 2:55 AM [employer] Temperature 36.4 ??C (97.5 ??F) 08/18/2021 11:[address] Respiratory Rate 16 08/19/2021 2:55 AM [employer] WORK[employer]TER Oxygen Saturation 100% 08/19/2021 2:55 AM [employer] WORK[employer]TER Inhaled Oxygen Concentration - - Weight 63.5 kg (140 lb) 12/21/2020 9:18 AM CDT Height 170.2 cm (5' 7) 12/21/2020 9:18 AM CDT Body Mass Index 21.93 12/21/2020 9:18 AM CDT Plan of Treatment Health Maintenance Due Date Last Done Comments ADVANCE CARE PLANNING 1998 ANNUAL REVIEW OF HM ORDERS 1998 CHLAMYDIA SCREENING 1998 YEARLY PREVENTIVE VISIT 1998 COVID-19 Vaccine (#1) 06/07/1999 HIV SCREENING 2013 HEPATITIS C SCREENING 2016 PAP 12/06/2019 DTAP/TDAP/TD IMMUNIZATION (7 - Td or Tdap) 04/30/2021 04/30/2011, 04/28/2004, 04/28/2004, Additional history exists INFLUENZA VACCINE (#1) 2023 4, 08/30/2014, 08/30/2014, Additional history exists PHQ-2 (once per calendar year) 2023 HEPATITIS B IMMUNIZATION Completed 999, 09/09/1999, 09/09/1999, Additional history exists Pneumococcal Vaccine: Pediatrics (0 to 5 Years) and At-Risk Patients (6 to 64 Years) Aged Out 08/14/2000, 05/20/2000 No longer eligibl e based on patient's age to complete this topic IPV IMMUNIZATION Completed 04/28/2004, , 02/13/2000, Additional history exists HPV IMMUNIZATION Completed 12/09/2013, 02/2014, 03/24/2012, Additional history exists MENINGITIS IMMUNIZATION Aged Out 12/09/2013, 12/09 No longer eligible based on patient's age to complete this topic RSV MONOCLONAL ANTIBODY Aged Out No l onger eligible based on patient's age to complete this topic Advance Directives For more information, please contact: [phone] Latest Code Status on File Code Status Date Activated Date Inactivated Comments Full Code 02/24/2020 2:13 PM 02/25/2020 9:51 AM Question Answer Comments Code status determined by: Discussion wi th patient/legal decision maker Code Status History Code Status Date Activated Date Inactivated Comments Full Code 09/10/2019 11:28 AM 10/27/2019 1:55 PM Question Answer Comments Code status determined by: Discussion wi th patient/legal decision maker Full Code 09/09/2019 4:22 PM 09/10/2019 11:28 AM Question Answer Comments Code status determined by: Discussion wi th patient/legal decision maker Full Code 01/29/2018 8:56 AM 10/18/2018 12:35 PM Full Code 01/28/2018 9:55 PM 01/29/2018 8:56 AM Care Teams Phosphoric Acid Operator Relationship Specialty Start Date End Date Aimee Vidal MD [facility] [address] [facility] [place] [id number] PCP - General Gastroenterology 11/10/20
--- OUTSIDE RECORDS SUMMARY | 2023-11-18 11:07 | XMS_ITS | Encounter Summary ---
Author Name Unknown Organization [facility] Address [address] [place] [address] Care Team Providers Care Gate Mortiser Operator Name Role Phone Steve Landeros M.D. Primary Care Provider [phone] Reason for Referral * Outpatient (Routine) - Authorized Specialty Diagnoses / Procedures Referred By Urbano t Referred To Contact Family Medicine Steve Landeros M.D. [address] [place] [address] [facility] Referral ID Status Reason Start Date Expiration Date V isits Requested Visits Authorized [id number] Authorized 11/12/2023 05/13/2025 1 1 E BUILDER Encounter Details Date Type Department Care Team (Late st Contact Info) Description 11/12/2023 Orders Only [facility] PCP HLTH MNT Steve Landeros M.D. [address] [place] [address] Social History Tobacco Use Types Packs/Day Years Used Date Smoking Tobacco: Never Passive Smoke Exposure: Never Smokeless Tobacco: Never Alcohol Use Standard Drinks/Week Comments Yes 0 (1 standard drink = 0.6 oz pur e alcohol) occasional PHQ-2 Answer Date Recorded PHQ-2 Score 0 01/04/2023 Nutrition Answer Date Recorded Nutrition: EVOO Fat Source Unknown 12/05 Nutrition: Servings of Fruits/Vegetables per Day Not on file 2020 Dental Answer Date Recorded Dental: Regular Dentist Unknown 12/06/19 21 Sex and Gender Information Value Date Recorded Sex Assigned at Not on file Gender Identity Not on file Sexual Orientation Not on file documented as of this encounter Plan of Treatment Scheduled Referrals Name Type Priority Associated Diagnoses Orde r Schedule Family Medicine office visit (clinic) Outpatient Referral Routine Expected: 11/26/2023, Expires: 05/10/2024 documented as of this encounter Visit Diagnoses Not on filedocumented in this encounter Care Teams Gate Mortiser Operator Relationship Specialty Start Date End Date Steve Landeros M.D. [address] [place] [address] PCP - General 09/05/23 documented as of this encounter
--- OUTSIDE RECORDS SUMMARY | 2023-11-18 11:07 | XMS_ITS | Referral Summary ---
Author Name Unknown Organization [facility] Address [address] [place] [address] Care Team Providers Care Catalyst Plant Supervisor Name Role Phone Aimee Vidal MD Primary [...] Comments Blood Pressure 108/72 08/19/2021 2:55 AM AUTOMOTIVE BRAKE SPECIALIST Pulse 79 08/19/2021 2:55 AM AUTOMOTIVE BRAKE SPECIALIST Temperature 36.4 ??C (97.5 ??F) 08/18/2021 11:[address] Respiratory Rate 16 08/19/2021 2:55 AM AUTOMOTIVE BRAKE SPECIALIST Oxygen Saturation 100% 08/19/2021 2:55 AM AUTOMOTIVE BRAKE SPECIALIST Inhaled Oxygen Concentration - - Weight 63.5 kg (140 lb) 12/21/2020 9:18 AM CDT Height 170.2 cm (5' 7) 12/21/2020 9:18 AM CDT Body Mass Index 21.93 12/21/2020 9:18 AM CDT Plan of Treatment Not on file Advance Directives For more information, please contact: [phone] Latest Code Status on File Code Status [...] 9:55 PM 01/29/2018 8:56 AM Care Teams Catalyst Plant Supervisor Relationship Specialty Start Date End Date Aimee Vidal MD [facility] [address] [facility] [place] [address] PCP - General Gastroenterology 11/10/20
--- OUTSIDE RECORDS SUMMARY | 2023-11-18 11:07 | XMS_ITS | Encounter Summary ---
Author Name Unknown Organization [facility] Address [address] [place] [address] Care Team Providers Care Knife Operator Name Role Phone Steve Landeros M.D. Primary Care Provider [phone] Reason for Visit * Reason Comments Fatigue Concerns with possib le thyroid issues GI Problem Has cyclical vomitin g and gastroparesis * Appointment Request (Routine) - Closed Specialty Diagnoses / Procedures Referred By Urbano chavez Referred To Contact Family Medicine Referral ID Status Reason Start Date Expiration Date Visits Re quested Visits Authorized [id number] Closed 09/10/2023 09/09/2024 1 1 Encounter Details Date Type Department Care Team (Latest Contact Info) Description 09/19/2023 3:30 PM PRESERVATIONIST Office Visit Department of Family Medicine in [place], [place] [address] [place] [address] Steve Landeros M.D. [address] [place] [address] Fatigue (Primary Dx); Counseling Control And Therapy; Abscess Retropharyngeal Social History Tobacco Use Types Packs/Day Years Used Date Smoking Tobacco: Never Passive Smoke Exposure: Never Smokeless Tobacco: Never Tobacco Cessation:Counseling Given: Yes Alcohol Use Standard Drinks/Week Comments Yes 0 [...] on file documented as of this encounter Last Filed Vital Signs Vital Sign Reading Time Taken Comments Blood Pressure 118/72 09/19/2023 3:29 PM PRESERVATIONIST Pulse 75 09/19/2023 3:29 PM PRESERVATIONIST Temperature 36.7 ??C (98 ??F) 09/19/2023 3:29 PM PRESERVATIONIST Respiratory Rate - - Oxygen Saturation 100% 09/19/2023 3:29 PM PRESERVATIONIST Inhaled Oxygen Concentration - - Weight 68.9 kg (152 lb) 09/19/2023 3:29 PM PRESERVATIONIST Height 170 cm (5' 6.93) 09/19/2023 3:29 PM PRESERVATIONIST Body Mass Index 23.86 09/19/2023 3:29 PM PRESERVATIONIST documented in this encounter Progress Notes * tSeve Landeros M.D. - 09/19/2023 3:30 PM CST SUBJECTIVE CHIEF COMPLAINT / REASON FOR VISIT Fatigue (Concerns with possible thyroid issues ) and GI Problem (Has cyclical vomiting and gastroparesis ) HISTORY OF PRESENT ILLNESS Hunter Butcher is a 22 y.o. female who presents for evaluation of increased fatigue of late. Patient has history of ADD/ADHD Ritalin and also has history recurrent sore throat. Has history retropharyngeal abscess and was hospitalized in [place] last year. 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 Mother was diagnosed with brain aneurysm early this year and has done fairly well since. Patient relates that the specialist has recommended doing MRI of the brain sometime. Patient has no history of hypotension. She also noted that 1 of the close family members has history of brain tumor/aneurysms at age 14. Patient try to keep herself busy at work although lately been sleeping more than usual. Sometime she will be sleeping 10-12 hours. There has no history any myalgia arthralgia noted. Does feel bloating with some abdominal discomfort at times and also has history of gastroparesis was given Reglan previously. Patient also has some nausea has some Zofran as needed. Chart shows she has history of cyclic vomiting and also history of cannabis use. REVIEW OF SYSTEMS Complete review of systems entirely negative except as noted in HPI. Denies any frequent headache dizziness. No chest pain chest tightness. Intermittent abdominal discomfort with some bloating at times. Element of nausea but no significant vomiting episode noted. No unintended weight loss. Relates that she does have hemorrhoids but denies any straining. Usually on pureed type diet and her stool usually soft. At times does have 2 or 3 bowel movements daily. Increased element of fatigue and tiredness spite of having slept for 10-12 hours. He denies any stressor. The following portions of the patient's history were reviewed and updated as appropriate: allergies, current medications, family history, medical history, social history, surgical history and problemlist. CURRENT MEDICATIONS Current Outpatient Medications Medication Sig acetaminophen (TYLENOL) 500 mg tablet Take 2 tablets (1,000 mg total) by mouth every 6 (six) hours. cholecalciferol, vitamin D3, (cholecalciferol) 25 mcg (1,000 Unit) tablet Take 25 mcg by mouth daily. cyanocobalamin (VITAMIN B12) 1,000 mcg tablet Take 1,000 mcg by mouth daily. hydrocortisone-pramoxine 1-1 % ointment Insert into the rectum. methylphenidate HCl (RITALIN) 10 mg tablet Take 10 mg by mouth as needed. norelgestromin-ethinyl estradiol (XULANE) 150-35 mcg/24 hr patch Apply 1 patch each week for 11 weeks, then remove for 1 week. tretinoin (RETIN-A) 0.1 % cream Apply 1 Application topically at bedtime. Apply to face. OBJECTIVE VITAL SIGNS BP 118/72 (BP Location: Right arm, Patient Position: Sitting, Cuff Size: Regular) Pulse 75 Temp36.7 ??C (Temporal) Ht 170 cm Wt 68.9 kg LMP 09/12/2023 (Approximate) SpO2 100% No BMI 23.86 kg/m?? PHYSICAL EXAMINATION General: In no acute distress. Verbalized well HEENT: Atraumatic. Eyes: EOMs intact. Sclerae white. Conjunctivae pink. Nose: No congestion. Oral cavity: Dentition Tongue moist. Neck: No thyromegaly. Cardiovascular: Regular rate and rhythm. No murmur. Respiratory: Clear anterior and posterior. Abdomen: Benign. Extremities: Full range of motion to upper and lower extremities. No cyanosis, clubbing or edema. Neurologic: Cranial nerves II-XII intact. ASSESSMENT / PLAN #1 Counseling Control And Therapy - norelgestromin-ethinyl estradiol (XULANE) 150-35 mcg/24 hr patch; Apply 1 patch each week for 11 weeks, then remove for 1 week., Normal #2 Fatigue - S-TSH (Thyroid-Stimulating Hormone - Sensitive); Future; Expected date: 09/19/2023 - CBC without Differential; Future; Expected date: 09/19/2023 - CBC without Differential - S-TSH (Thyroid-Stimulating Hormone - Sensitive) #3 Abscess Retropharyngeal Plan: Discussed with patient about findings. Will do a TSH level and also CBC at this point in time. Discussed about lifestyle balance and hopefully avoid any stress situation. Physically today he feels fine and has no abdominal discomfort. As for her gastroparesis she was given Reglan which she relates that it has not helping. Does have some Zofran available for nausea. Currently use patch for control. Medication list and past medical history was reviewed today also. Encouraged follow upin clinic as needed prior. Defer MRI of brain as discussed today. This was discussed with patient in details. Follow up in clinic as needed otherwise. ERVATIONIST documented in this encounter Miscellaneous Notes * Result Encounter Note - Steve Landeros M.D. - 09/22/2023 2:03 PM CST Patient called and notified of results. Encouraged patient to keep busy and reduce life stressors etc. adequate rest. Follow-up in clinic as needed ERVATIONIST documented in this encounter Plan of Treatment Not on file documented as of this encounter Procedures Procedure Name Priority Date/Time Associated Diagnosis Comments CBC WITHOUT DIFFERENTIAL, B Routine 09/19/2023 4:12 PM PRESERVATIONIST Fatigue THYROID-STIMULATING HORMONE-SENSITIVE (S-TSH) Routine 09/19/2023 4:12 PM PRESERVATIONIST Fatigue documented in this encounter Results * CBC without Differential (09/19/2023 4:12 PM PRESERVATIONIST) Hemoglobin 12.7 11.6 - 15.0 g/dL 09/19/2023 7:31 PM PRESERVATIONIST NPRG Hematocrit 38.8 35.5 - 44.9 % 09/19/2023 7:31 PM PRESERVATIONIST NPRG Erythrocytes 4.30 3.92 - 5.13 x10(12)/L 09/19/2023 7:31 PM PRESERVATIONIST NPRG MCV 90.2 78.2 - 97.9 fL 09/19/2023 7:31 PM PRESERVATIONIST NPRG RBC Distrib Width 12.5 12.2 - 16.1 % 09/19/2023 7:31 PM PRESERVATIONIST NPRG Platelet Count 268 157 - 371 x10(9)/L 09/19/2023 7:31 PM PRESERVATIONIST NPRG Leukocytes 7.0 3.4 - 9.6 x10(9)/L 09/19/2023 7:31 PM PRESERVATIONIST NPRG Blood (Blood, Venous) 09/19/2023 4:12 PM PRESERVATIONIST 09/19/2023 6:22 PM PRESERVATIONIST Steve Landeros M.D. LAB BLOOD ADD-ON [facility] [address] [place] [address], [facility] [place] [address] [address] [place] [address] * S-TSH (Thyroid-Stimulating Hormone - Sensitive) (09/19/2023 4:12 PM PRESERVATIONIST) Pathologist [facility] TSH, Sensitive 0.9 0.3 - 4.2 mIU/L 09/19/2023 7:23 PM PRESERVATIONIST NPRG Blood (Blood, Venous) 09/19/2023 4:12 PM PRESERVATIONIST 09/19/2023 6:22 PM PRESERVATIONIST Steve Landeros M.D. LAB BLOOD ADD-ON [facility] [address] [place] [address], [place] [address] [address] [place] [address] documented in this encounter Visit Diagnoses Diagnosis Fatigue- Primary Counseling Control And Therapy Abscess Retropharyngeal documented in this encounter Care Teams Knife Operator Relationship Specialty Start Date End Date Steve Landeros M.D. [address] [place] [address] PCP - General 09/05/23 documented as of this encounter
--- OUTSIDE RECORDS SUMMARY | 2023-11-18 11:07 | XMS_ITS | Clinical Summary ---
Author Name Unknown Organization [facility] Address [address] [place] [address] Care Team Providers Care Edger Machine Setter Name Role Phone Steve Landeros M.D. Primary Care Provider [phone] Source Comments Patient records contain information from all sites at [facility]. For routine questions regarding patient records, call [phone] during business hours, M-F 8:00 AM - 5:00 PM Central Time. Record requests for emergency care only can be directed to [phone] at any time.[facility] Allergies Active Allergy Reactions Criticality Noted Date Comments Amoxicillin Hives (Reselect Reaction) High 3 Fluocinolone Nausea Only 08/08/2012 Medications Medication Sig Dispensed Refills Start Date End Date Status methylphenidate HCl (RITALIN) 10 mg tablet Take 10 mg by mouth as needed. 0 01/05/2022 Active acetaminophen (TYLENOL) 500 mg tablet Take 2 tablets (1,000 mg total) by mouth every 6 (six) hours. 0 03/24/2022 Active cholecalciferol, vitamin D3, (cholecalciferol) 25 mcg (1,000 Unit) tablet Take 25 mcg by mouth daily. 0 Active cyanocobalamin (VITAMIN B12) 1,000 mcg tablet Take 1,000 mcg by mouth daily. 0 Active hydrocortisone-pram oxine 1-1 % ointment Insert into the rectum. 0 04/04/2023 Active tretinoin (RETIN-A) 0.1 % cream Apply 1 Application topically at bedtime. Apply to face. 0 Active norelgestromin-ethi nyl estradiol (XULANE) 150-35 mcg/24 hr patchIndications:Co unseling Control And Therapy Apply 1 patch each week for 11 weeks, then remove for 1 week. 11 patch 0 09/19/2023 Active Active Problems Problem Noted Date Diagnosed Date Abscess Retropharyngeal 03/23/2022 Cyclical Vomiting Syndrome Unrelated To Migraine 06/27/2021 Cannabis Mild Use Disorder (Abuse) Uncomplicated 08/09/2014 Rhinitis Allergic 03/13/2003 Overview: Rhinitis Allergic NOS Encounters Date Type Department Care Team Description 11/12/2023 Orders Only [facility] PCP HLTH MNT Steve Landeros M.D. 09/19/2023 3:30 PM ELECTRONIC DATA INTERCHANGE SPECIALIST Office Visit Department of Family Medicine in [place], [place] [address] [place] [address] Steve Landeros M.D. Fatigue (Primary Dx); Counseling Control And Therapy; Abscess Retropharyngeal 09/19/2023 Clinical Communication Department of Family Medicine in [place], [place] [address] [place] [address] Steve Landeros M.D. from Last 3 Months Immunizations Name Administration Dates Next Due 4vHPV (discontinued) 12/09/2013,03/24/2012,04/30 9vHPV 12/09/2013,03/24/2012,04/30/2011 DTaP (Daptacel) 07/04/1999,04/24/1999,02/06/1999 DTaP (Infanrix, Tripedia) 04/28/2004,,04/24/1999,1998 DTaP / Hib 05/20/2000,07/04/1999 DTaP-IPV 04/28/2004 DTaP-IPV/Hib (Pentacel) 04/24/1999,02/06/1999 H1N1 All Forms 08/24/2009 HepA Adult 01/04/2023(Deferred: Patient katie odom) HepA Pediatric/Adolescent 12/09/2013 HepA, (discontinued) 3 Dose Pediatric/Adolescent 12/09/2013 HepB Adult 09/09/1999,02/06/1999,1998 HepB Pediatric/Adolescent 09/09/1999,02/06/1999, 1998 Hib (PRP-T) (ACTHIB, HIBERIX) 05/20/2000 ,07/04/1999,04/24/1999,1998 Hib, Unspecified 07/04/1999,04/24/1999, 9 IPV 04/28/2004, 0,04/24/1999,1998 Influenza (IM) Preservative Free 014,08/11/2013,07/29/2012,2011,09/19/2010,08/08/2007,07/22/2006,1 ,07/21/2004 Influenza TIV (IM) 07/11/2009 Influenza, Quadrivalent, Adj uvanted, Preservative Free 01/04/2023(Deferred: Patient decision) Influenza, Seasonal, Injectable 07/11/2009 Influenza, Unspecified 08/30/2014,2012,07/29/2012,2011,09/19/2010,08/08/2007,07/22/2006,1 ,07/21/2004,09/13/2003, 003 MCV4 (Menactra)(Discontinued) 12/09/2013 MCV4 (Menveo) 12/09/2013 MMR 04/28/2004,05/20/2000 PCV7 (discontinued) 08/13/2000,05/20/2000 Polio, Unspecified 02/13/2000 SARS-COV-2 (COVID-19) - JANS SEN (J&J)(Discontinued) 03/14/2021 SARS-COV-2 (COVID-19) - PFIZ ER (Discontinued)(12 years or older) 01/04/2023(Deferred: Patient decision) Tdap 01/04/2023(Deferred: Patient decision),04/30/2011 SAMANTHA 12/09/2013,02/13/2000 influenza vaccine quad (FLUZ ONE) (6 months-35 months) (PF) 08/30/2014,08/11/2013,07/29/2012,2011,09/19/2010,08/24/2009,07/11/2009,1 10/08/2006,07/22/2006,07/20/2005, 004,09/13/2003,08/11/2003 Family History Medical History Relation Name Comments Mitochondrial disorder Brother No Known Problems Father No Known Problems Mother Relation Name Status Comments Brother Father Alive Mother Alive Sister Alive Social History Tobacco Use Types Packs/Day Years [...] Date Recorded Dental: Regular Dentist Unknown 12/06/19 Sex and Gender Information Value Date Recorded Sex Assigned at Not on file Gender Identity Not on file Sexual Orientation Not on file Last Filed Vital Signs Vital Sign Reading Time Taken Comments Blood Pressure 118/72 09/19/2023 3:29 PM ELECTRONIC DATA INTERCHANGE SPECIALIST Pulse 75 09/19/2023 3:29 PM ELECTRONIC DATA INTERCHANGE SPECIALIST Temperature 36.7 ??C (98 ??F) 09/19/2023 3:29 PM ELECTRONIC DATA INTERCHANGE SPECIALIST Respiratory Rate 16 06/24/2023 12:55 PM CDT Oxygen Saturation 100% 09/19/2023 3:29 PM ELECTRONIC DATA INTERCHANGE SPECIALIST Inhaled Oxygen Concentration - - Weight 68.9 kg (152 lb) 09/19/2023 3:29 PM ELECTRONIC DATA INTERCHANGE SPECIALIST Height 170 cm (5' 6.93) 09/19/2023 3:29 PM ELECTRONIC DATA INTERCHANGE SPECIALIST Body Mass Index 23.86 09/19/2023 3:29 PM ELECTRONIC DATA INTERCHANGE SPECIALIST Plan of Treatment Health Maintenance Due Date Last Done Comments Cervical Cancer Screening 1998 DTaP,Tdap,and Td Vaccines (7 - Td or Tdap) 04/30/2021 04/30/2011, 04/28/2004, 04/28/2004, Additional history exists Chlamydia and Gonorrhea Screening 06/27/2022 06/27/2021 COVID-19 Vaccine ( season) 2023 03/14/2021 Influenza Vaccine (#1) 2023 4, 08/30/2014, 08/30/2014, Additional history exists Depression Screening (Annual PHQ-2) 10/07/2023 Hepatitis B Vaccines Completed 09/09/1999, 09/09/1999, 02/06/1999, Additional history exists Pneumococcal vaccine (0-64 years) Aged Out 08/13/2000, 05/20/2000 No longer eligibl e based on patient's age to complete this topic HPV Vaccines Completed 12/09/2013, 02/2014, 03/24/2012, Additional history exists Varicella Vaccines Completed 12/09/2013, 02/13/2000 HIV Screening Completed 06/27/2021 Hepatitis C Screening Completed 06/27/2021 Procedures Procedure Name Priority Date/Time Associated Diagnosis Comments THYROID-STIMULATING HORMONE-SENSITIVE (S-TSH) Routine 09/19/2023 4:12 PM ELECTRONIC DATA INTERCHANGE SPECIALIST Fatigue CBC WITHOUT DIFFERENTIAL, B Routine 09/19/2023 4:12 PM ELECTRONIC DATA INTERCHANGE SPECIALIST Fatigue from Last 3 Months Results * CBC without Differential (09/19/2023 4:12 PM ELECTRONIC DATA INTERCHANGE SPECIALIST) Hemoglobin 12.7 11.6 - 15.0 g/dL 09/19/2023 7:31 PM ELECTRONIC DATA INTERCHANGE SPECIALIST NPRG Hematocrit 38.8 35.5 - 44.9 % 09/19/2023 7:31 PM ELECTRONIC DATA INTERCHANGE SPECIALIST NPRG Erythrocytes 4.30 3.92 - 5.13 x10(12)/L 09/19/2023 7:31 PM ELECTRONIC DATA INTERCHANGE SPECIALIST NPRG MCV 90.2 78.2 - 97.9 fL 09/19/2023 7:31 PM ELECTRONIC DATA INTERCHANGE SPECIALIST NPRG RBC Distrib Width 12.5 12.2 - 16.1 % 09/19/2023 7:31 PM ELECTRONIC DATA INTERCHANGE SPECIALIST NPRG Platelet Count 268 157 - 371 x10(9)/L 09/19/2023 7:31 PM ELECTRONIC DATA INTERCHANGE SPECIALIST NPRG Leukocytes 7.0 3.4 - 9.6 x10(9)/L 09/19/2023 7:31 PM ELECTRONIC DATA INTERCHANGE SPECIALIST NPRG Blood (Blood, Venous) 09/19/2023 4:12 PM ELECTRONIC DATA INTERCHANGE SPECIALIST 09/19/2023 6:22 PM ELECTRONIC DATA INTERCHANGE SPECIALIST Steve Landeros M.D. LAB BLOOD ADD-ON [facility] [address] [place] [address], [facility] [place] [address] [place] [address] * S-TSH (Thyroid-Stimulating Hormone - Sensitive) (09/19/2023 4:12 PM ELECTRONIC DATA INTERCHANGE SPECIALIST) TSH, Sensitive 0.9 0.3 - 4.2 mIU/L 09/19/2023 7:23 PM ELECTRONIC DATA INTERCHANGE SPECIALIST NPRG Blood (Blood, Venous) 09/19/2023 4:12 PM ELECTRONIC DATA INTERCHANGE SPECIALIST 09/19/2023 6:22 PM ELECTRONIC DATA INTERCHANGE SPECIALIST Steve Landeros M.D. LAB BLOOD ADD-ON Performing Organization Address [facility] Co de Phone Number [facility] [address] [place] [address], [facility] [place] [address] [address] [place] [address] from Last 3 Months Advance Directives For more information, please contact: [phone] Latest Code Status on File Code Status Date Activated Date Inactivated Comments Full Code 03/24/2022 12:49 PM 03/24/2022 3:57 PM Question Answer Comments Full Code: Not Discussed Due to: Patient not available Code Status History Code Status Date Activated Date Inactivated Comments Full Code 03/23/2022 4:58 PM 03/24/2022 12:49 PM Question Answer Comments Full Code: Not Discussed Due to: Patient not available Care Teams Edger Machine Setter Relationship Specialty Start Date End Date Steve Landeros M.D. [address] [place] [address] PCP - General 09/05/23
--- OUTSIDE RECORDS SUMMARY | 2023-11-18 11:07 | XMS_ITS | Encounter Summary ---
Author Name Unknown Organization [facility] Address [address] [place] [address] Care Team Providers Care House Repairer Name Role Phone Steve Landeros M.D. Primary Care Provider [phone] Encounter Details Date Type Department Care Team (Late st Contact Info) Description 09/19/2023 Clinical Communication Department of Family Medicine in [address] [phone] Steve Landeros M.D. [address] [place] [phone] Social History Tobacco Use Types Packs/Day Years [...] on file documented as of this encounter Miscellaneous Notes * Telephone Encounter - Heide Sanchez L.P.N. - 09/19/2023 11:27 AM EMAIL MARKETING INTERN Left message for patient to return call. Ok to book at 1:00 pm or 3:30p spot. Thank you. L MARKETING INTERN documented in this encounter Plan of Treatment Not on file documented as of this encounter Visit Diagnoses Not on filedocumented in this encounter Care Teams House Repairer Relationship Specialty Start Date End Date Steve Landeros M.D. [address] [place] [phone] PCP - General 09/05/23 documented as of this encounter
--- OUTSIDE RECORDS SUMMARY | 2023-11-18 11:07 | XMS_ITS | Encounter Summary ---
Author Name Unknown Organization [facility] Address [address] [place] [address] Care Team Providers Care Box Hinge And Lock Attacher Name Role Phone Elsewhere, Pcp Primary Care Provider Unavailabl e Reason for Visit * Reason Comments Sore Throat Possible strep~ sore throat, swollen lymph nodes and fever and * Appointment Request (Routine) - Closed Specialty Diagnoses / Procedures Referred By Contac t Referred To Contact Family Medicine Referral ID Status Reason Start Date Expiration Date Visits Re quested Visits Authorized [id number] Closed 06/24/2023 06/23/2024 1 1 Encounter Details Date Type Department Care Team (Late st Contact Info) Description 06/24/2023 1:00 PM CDT Office Visit Department of Family Medicine in [address] [phone] Steve Landeros M.D. [address] [place] [address] Sore Throat (Primary Dx) Social History Tobacco Use Types Packs/Day Years [...] Sign Reading Time Taken Comments Blood Pressure 119/84 06/24/2023 12:55 PM CDT Pulse 103 06/24/2023 12:55 PM CDT Temperature 36.8 ??C (98.2 ??F) 06/24/2023 12:55 PM C DT Respiratory Rate 16 06/24/2023 12:55 PM CDT Oxygen Saturation 97% 06/24/2023 12:55 PM CDT Inhaled Oxygen Concentration - - Weight 65.8 kg (145 lb) 06/24/2023 12:55 PM CDT Height 170.2 cm (5' 7.01) 06/24/2023 12:55 PM C DT Body Mass Index 22.7 06/24/2023 12:55 PM CDT documented in this encounter Progress Notes * Steve Landeros M.D. - 06/24/2023 1:00 PM CDT SUBJECTIVE CHIEF COMPLAINT / REASON FOR VISIT Sore Throat (Possible strep~ sore throat, swollen lymph nodes and fever and ) HISTORY OF PRESENT ILLNESS Hunter Butcher is a 22 y.o. female who presents for evaluation of sore throat that started yesterday. No obvious fever chills noted. He is not taking any Tylenol Advil. No problem with oral intake or any shortness of breath. Does have history of abscess retropharyngeal back in March 2022 when admitted in [place]. She is done fairly well since. No nausea no vomiting noted. She is concerned about possible strep REVIEW OF SYSTEMS Complete review of systems entirely negative except as noted in HPI. No dizziness no headaches noted. No chest pain chest tightness or any cough. No fever no chills. Positive for sore throat that started yesterday. No trouble with oral intake especially liquids. Low problems with breathing. No nasal congestion noted. No nausea no vomiting noted. No abdominal pain or bloating. No urine symptoms any bowel issues. The following portions of the patient's history were reviewed and updated as appropriate: allergies, current medications, family history, medical history, social history, surgical history and problemlist. CURRENT MEDICATIONS Current Outpatient Medications Medication Sig acetaminophen (TYLENOL) 500 mg tablet Take 2 tablets (1,000 mg total) by mouth every 6 (six) hours. methylphenidate HCl (RITALIN) 10 mg tablet Take 10 mg by mouth as needed. metoclopramide (REGLAN) 5 mg/5 mL solution Take 5 mL (5 mg total) by mouth 3 (three) times a day asneeded for heartburn. norelgestromin-ethinyl estradiol (XULANE) 150-35 mcg/24 hr patch Apply 1 patch each week for 11 weeks, then remove for 1 week. azithromycin (ZITHROMAX) 250 mg tablet Take 500 mg (2 tablets) by mouth the first day then 250 mg (1 tablet) by mouth for 4 more days. fluconazole (DIFLUCAN) 150 mg tablet Take 1 tablet (150 mg total) by mouth See Admin Instructions. Take one tab now. Repeat in 7 days if symptoms persist. OBJECTIVE VITAL SIGNS BP 119/84 (BP Location: Right arm, Patient Position: Sitting, Cuff Size: Regular) Pulse 103 Temp 36.8 ??C (Temporal) Resp 16 Ht 170.2 cm Wt 65.8 kg LMP 06/06/2023 (Approximate) SpO2 97% No BMI 22.70 kg/m?? PHYSICAL EXAMINATION General: In no acute distress. HEENT: Atraumatic. TMs/canals are clear. Eyes: EOMs intact. Sclerae white. Conjunctivae pink. Nose:No congestion. Oral cavity: Dentition good repair. Tongue moist. Oropharyngeal area within normal limits post tonsillectomy. No evidence of any erythema noted. Strep swab done Neck: No thyromegaly. Normal range of motion. No lymphadenopathy or discomfort noted. Cardiovascular: Regular rate and rhythm. No murmur. Respiratory: Clear anterior and posterior. Abdomen: Benign. Extremities: Full range of motion to upper and lower extremities. No cyanosis, clubbing or edema. Neurologic: Cranial nerves II-XII intact. ASSESSMENT / PLAN #1 Sore Throat - Strep Group A, PCR, Point of Care; Future; Expected date: 06/24/2023 - Strep Group A, PCR, Point of Care Other orders - fluconazole (DIFLUCAN) 150 mg tablet; Take 1 tablet (150 mg total) by mouth See Admin Instructions. Take one tab now. Repeat in 7 days if symptoms persist., Starting 06/24/2023, Normal - azithromycin (ZITHROMAX) 250 mg tablet; Take 500 mg (2 tablets) by mouth the first day then 250 mg (1 tablet) by mouth for 4 more days., Normal Plan: Discussed with patient about findings. She is quite fearful of possible infection to the oropharyngeal area. She is post tonsillectomy and we did a swab of the throat for strep. She will be started on azithromycin which has worked well for her in the past. Symptomatic treatment with OTC Tylenol Advil as needed. Chloraseptic warm salt gargles as needed. Ensure adequate fluids. If she is not any better or worse to be seen emergency room for further evaluation. Patient is comfortable with current treatment plan. Addendum: Strep was negative and patient was advised. Follow-up as needed Follow up in clinic as needed otherwise. documented in this encounter Miscellaneous Notes * Result Encounter Note - Steve Landeros M.D. - 06/24/2023 8:34 PM CDT Patient called and notified of results. Advised to finish up her antibiotics and symptomatic treatment. Tylenol Advil as needed. History of oropharyngeal abscess/infection with post tonsillectomy documented in this encounter Plan of Treatment Not on file documented as of this encounter Procedures Procedure Name Priority Date/Time Associated Diagnosis Comments STREP GROUP A, PCR, POCT Routine 06/24/2023 1:20 PM CDT Sore Throat documented in this encounter Results * Strep Group A, PCR, Point of Care (06/24/2023 1:20 PM CDT) Strep Group A, PCR, POCT Negative Negative 06/24/2023 1:22 PM CDT NPCL Swab (Throat) 06/24/2023 1:2 0 PM CDT 06/24/2023 1:20 PM CDT Steve Landeros M.D. LAB POCT ORDERABLES - DEVICE [facility] [address] [place] [id number], [facility] NPCL [facility] [address] [address] documented in this encounter Visit Diagnoses Diagnosis Sore Throat- Primary documented in this encounter Care Teams Box Hinge And Lock Attacher Relationship Specialty Start Date End Date Elsewhere, Pcp PCP - General Internal Medicine 01/21/23 09/04/23 documented as of this encounter
--- OUTSIDE RECORDS SUMMARY | 2023-11-18 11:07 | XMS_ITS | Clinical Summary ---
Author Name Unknown Organization [facility] Address [place], [place] [address] Care Team Providers Care Soap Maker Name Role Phone Jerel Lino MD Primary Care Provider [phone] Allergies Active Allergy Reactions Criticality Noted Date Comments Amoxicillin Hives 11/15/2006 Fluocinolone Nausea Only 08/08/2012 Medications Medication Sig Dispensed Refills Start Date End Date Status XULANE 150-35 mcg/24 hr patch 2 07/07/2019 Active adapalene-benzoyl peroxide (EPIDUO FORTE) 0.3-2.5 % topical gel Apply topically to affected area(s). 0 04/13/2019 Active ondansetron (ZOFRAN) 8 mg tabletIndications:Chr onic constipation Take 1 tablet by mouth every 8 hours if needed. 30 tablet 0 10/28/2019 Active azelaic acid (FINACEA) 15 % topical gel 0 11/25/2020 Active Active Problems Problem Noted Date Diagnosed Date Major depressive disorder, recurrent 08/09/2014 Cannabis abuse 08/09/2014 Immunizations Name Administration Dates Next Due [id number] 04/24/1999,02/06/1999 DTaP-HIB (TriHIBIT) 05/20/2000,07/04/1999 DTaP-IPV (Kinrix) 04/28/2004 Hepatitis A (Peds) 12/09/2013 Hepatitis B (Peds) 09/09/1999,02/06/1999, 999 Hib Conjugate, Unspecified 07/04/1999,04/24/1999 ,02/06/1999 Human Papilloma Virus Vaccine 12/09/2013, 012,04/30/2011 Influenza A (H1N1), Inactivated 08/24/2009 Influenza Virus, Unspecified 09/19/2010, 08/08/2007,07/22/2006,07/20,07/21/2004 MMR, Unspecified 04/28/2004,05/20/2000 Meningococcal Vaccine (Menveo) 12/09/2013 Pneumococcal conj 7-Valent (Prevnar 7) 0,05/20/2000 Polio Virus, Unspecified 02/13/2000 Tdap 04/30/2011 Varicella Vaccine 12/09/2013,02/13/2000 Family History Medical History Relation Name Comments Diabetes Maternal Grandmother Thyroid Disease Mother Relation Name Status Comments Brother (Age 11) Maternal Grandmother Mother Social History Tobacco Use Types Packs/Day Years Used Date Smoking Tobacco: Never Cigarettes Smokeless Tobacco: Never Tobacco Cessation:Counseling Given: Yes Alcohol Use Standard Drinks/Week Comments Yes 0 (1 standard drink = 0.6 oz pur e alcohol) once a week PHQ-2 Answer Date Recorded PHQ-2 Score 3 12/07/2018 Social Connections Answer Date Recorded Frequency of Communication with Friends and Fami ly Not on file 10/07/2021 Financial Resource Strain Answer Date R ecorded Difficulty of Paying Living Expenses Not on file 10/07/2021 Difficulty of Paying Living Expenses Not on file 10/07/2021 Sex and Gender Information Value Date Recorded Sex Assigned at Not on file Gender Identity Not on file Sexual Orientation Not on file Obstetrics History Last Filed Vital Signs Vital Sign Reading Time Taken Comments Blood Pressure 140/73 04/21/2021 1:33 PM CDT Pulse 79 04/21/2021 1:33 PM CDT Temperature 36.7 ??C (98 ??F) 10/28/2019 9:23 AM SPECIAL DELIVERY CARRIER Respiratory Rate 20 07/25/2019 1:19 PM CDT Oxygen Saturation 100% 04/21/2021 1:33 PM CDT Inhaled Oxygen Concentration - - Weight 60.1 kg (132 lb 9.6 oz) 04/21/2021 1:33 P M CDT Height 172.3 cm (5' 7.84) 04/21/2021 1:33 PM CD T Body Mass Index 20.26 04/21/2021 1:33 PM CDT Plan of Treatment Health Maintenance Due Date Last Done Comments HIV for age 15-65 2013 Hepatitis C screening for age 18-79 2016 Chlamydia for age 16-24 02/06/2018 02/06/2017 Depression screening for age 12+ 06/04/2019 06/04/2018, 09/16/2017 Pap test for age 21-65 12/06/2019 Tetanus booster 04/30/2021 04/30/2011 BMI (ht and wt on same day) for age 18+ 04/21/2022 04/21/2021, 07/25/2019, 07/13/2019, Additional history exists COVID-19 vaccine series (2022- season) 2023 03/14/2021 Influenza for age 9-49 06/07/2023 0, 08/24/2009, 08/08/2007, Additional history exists Pneumococcal series for age 6-64 Aged Out 08/13/2000, 05/20/2000 No longer eligibl e based on patient's age to complete this topic Tdap Completed 04/30/2011 HPV series for age 9-26 Completed 12/10/19 14, 03/24/2012, 04/30/2011 Advance Directives Latest Code Status on File Code Status Date Activated Date Inactivated Comments Full Code 05/20/2015 7:13 AM 05/24/2015 5:16 PM Question Answer Comments Code Status Discussion: Not Discussed Care Teams Soap Maker Relationship Specialty Start Date End Date Jerel Lino MD [address] [place] [address] PCP - General Family Practice 04/21/21
--- OUTSIDE RECORDS SUMMARY | 2023-11-18 11:07 | XMS_ITS | Encounter Summary ---
Author Name Unknown Organization [facility] Address [address] [place] [address] Care Team Providers Care Storage Battery Inspector Name Role Phone Anam Ness D.O. Primary Care Provider [phone] Encounter Details Date Type Department Care Team (Late st Contact Info) Description 01/07/2023 Clinical Communication Department of Family Medicine in [place], [place] [address] [place] [phone] Anam Ness D.O. [address] [place] [phone] Social History Tobacco Use Types Packs/Day Years [...] encounter Miscellaneous Notes * Telephone Encounter - Ivana Garcia R.N. - 01/07/2023 10:47 AM CDT R: advise on antibiotics per patient request S: URI not improved, Pt requesting zpack. B/A: Saw Dr. Ness 01/04/2023, info from instructions: The common cold is a viral infection of the nose and throat. This is also called an upper respiratory tract infection (URI). Many adults have 2 or 3 URIs each year. A cold is usually harmless, although it might not feel that way. Common symptoms include: Low grade fever, a temperature of 100.4 degrees Fahrenheit (38 degrees Celsius) or slightly higher Cough Sore throat Head congestion or face pain Red or mattering eyes Stuffy nose or runny nose. At first the drainage from the nose may be clear. Later it may become thicker and yellow or green. Yellow or green mucus does not mean it is a bacterial infection. Ear pain or pressure Feeling tired Symptoms of a cold or URI can last 14 to 21 days. A dry, hacking cough can last up to 4 weeks. Antibiotics do NOT work in treating viral infections. Antibiotics only help to treat bacterial infections. Taking antibiotics when you do not need them is strongly discouraged. They can lead to serious and harmful side effects such as allergic reactions, rashes, C. difficile infections, diarrhea, and yeast infections. Patient reports that her mucus is now green. She is not functioning well- she has significant sinus pressure and it is affecting her when she changes positions or even makes slight turns of her head. She also has concern for nausea. Home medications in use: taking tylenol, Claritin and Sudafed. She was made aware Dr. Ness is not in clinic today. She declines return to clinic for re-evaluation at this time. POD requested to review. Pt requesting chelsea. documented in this encounter Plan of Treatment Not on file documented as of this encounter Visit Diagnoses Not on filedocumented in this encounter Care Teams Storage Battery Inspector Relationship Specialty Start Date End Date Anam [place]ess [place] [address] PCP - General Family Medicine 01/03/23 01/20/23 documented as of this encounter
--- OUTSIDE RECORDS SUMMARY | 2023-11-18 11:07 | XMS_ITS | Encounter Summary ---
Author Name Unknown Organization [facility] Address [address] [place] [address] Care Team Providers Care Catalyst Impregnator Name Role Phone Anam Ness D.O. Primary Care Provider [phone] Reason for Visit * Reason Comments Sore Throat Nasal Congestion Headache X wk Encounter Details Date Type Department Care Team (Late st Contact Info) Description 01/07/2023 4:15 PM CDT Office Visit Urgent Care, [facility], in [place], [place] [address] [place] [phone] Danae Treadwell, GLOVE FORMER, C.N.P., R.N. [address] [place] [address] Sinusitis (Primary Dx); Fatigue Discharge Disposition: Home or Self Care Social History Tobacco Use Types Packs/Day Years [...] Sign Reading Time Taken Comments Blood Pressure 120/77 01/07/2023 4:58 PM CDT Pulse 88 01/07/2023 4:58 PM CDT Temperature 36.6 ??C (97.9 ??F) 01/07/2023 4:51 PM CD T Respiratory Rate - - Oxygen Saturation 97% 01/07/2023 4:51 PM CDT Inhaled Oxygen Concentration - - Weight - - Height - - Body Mass Index - - documented in this encounter Patient Instructions * Patient Instructions* Danae Treadwell APRN, C.N.P. - 01/07/2023 4:15 PM CDT Warm moisture is best for this, hot showers, teas, chicken noodle soup. Rest, alternate ibuprofen and acetominophen as needed for headache, sore throat. I will be working in 4 days, you can call me on Saturday and we can talk through symptoms. Take care and hope you feel better. * Attachments The following attachments cannot be sent through Care Everywhere. * Sinusitis (Rhinosinusitis) (Malawian) documented in this encounter Progress Notes * Danae Treadwell APRN, C.N.P. - 01/07/2023 4:15 PM CDT SUBJECTIVE CHIEF COMPLAINT / REASON FOR VISIT Sore Throat, Nasal Congestion, and Headache (X wk) HISTORY OF PRESENT ILLNESS Hunter Butcher is a 22 y.o. female who presents for evaluation of worsening sinus pressure,above eyes, temples, cheek bones, cough, sinus post nasal drip, throat tender with swallowing. Headaches, sneezing. Fever and fatigue. Night sweats. Sudafed, claritin, ibuprofen x 1 week. Not helpful. Symptoms continue to escalate. Home covid test negative. History of what sounds like retro pharyngeal abscess. Patient is concerned as this is 2nd visit forconcerns and is being denied antibiotics. Denies concerns with swallowing, states voice is muffled.States became visibly upset today, as feels horrible. Requesting z pack as that has been helpful inpast for similar symptoms. The following portions of the patient's history were reviewed and updated as appropriate: Allergies, current medications, medical history. REVIEW OF SYSTEMS Pertinent items are noted in HPI; all other review of systems was negative. OBJECTIVE VITAL SIGNS BP 120/77 Pulse 88 Temp 36.6 ??C SpO2 97% No PHYSICAL EXAMINATION Physical Exam Fatigued and afebrile mildly ill appearing 22 y.o. female. Skin: Warm dry intact. Afebrile. No evidence of rash. Head: Congestion and tenderness in the ethmoid, frontal, maxillary, nasal regions. Eyes: Erythemic injections throughout conjunctivae bilaterally. Increased tearing. Nose: Nares boggy draining thick horton secretions. Nasal alae crusted. Middle turbinates erythemic and boggy. Throat: Moist. Posteriorly injected, erythemic. Thick postnasal drip present on a cobblestoned base. Swallowing intact. Ears: Bulging bright pink tympanic membranes bilaterally. Neck: Soft and supple. No lymphadenopathy palpated. Full range of motion. Lungs: Clear auscultation anterior and posterior throughout. Respirations labored with harsh congested cough. No wheezing. No diminished breath sounds. Mental status: Alert, oriented and fatigued. DIAGNOSTICS Results for orders placed or performed in visit on 01/07/23 Infectious Mononucleosis, Rapid Test Specimen: Blood, Venous Result Value Ref Range Infectious Cumberland Test, B Negative Negative CBC with Differential, Blood Result Value Ref Range Hemoglobin 12.5 11.6 - 15.0 g/dL Hematocrit 39.5 35.5 - 44.9 % Erythrocytes 4.41 3.92 - 5.13 x10(12)/L MCV 89.6 78.2 - 97.9 fL RBC Distrib Width 12.9 12.2 - 16.1 % Platelet Count 231 157 - 371 x10(9)/L Leukocytes 5.9 3.4 - 9.6 x10(9)/L Neutrophils 3.93 1.56 - 6.45 x10(9)/L Lymphocytes 1.46 0.95 - 3.07 x10(9)/L Monocytes 0.37 0.26 - 0.81 x10(9)/L Eosinophils 0.17 0.03 - 0.48 x10(9)/L Basophils 0.01 0.01 - 0.08 x10(9)/L ASSESSMENT / PLAN Diagnosis Plan 1. Sinusitis doxycycline monohydrate (ADOXA) 100 mg tablet benzonatate (TESSALON) 200 mg capsule 2. Fatigue CBC with Differential, Blood Infectious Mononucleosis, Rapid Test 22-year-old female who presents to urgent care with concerns of worsening symptoms over the past 7-10 days. With increasing sinus pressure. Hoarse voice. No relief with Sudafed and Claritin. Unable to tolerate Flonase nasal spray and prednisone both of which were offered to her today. Requesting Z-Brian. Informed symptoms today appear to be more consistent with a sinus infection versus sore throat.Strep test-3 days ago. Related to patient's escalating symptoms and allergies to amoxicillin will treat with doxycycline. Patient reports stomach upset with doxycycline she is to take it with food. Yogurt with live cultures. Increase exposure to warm moisture with frequent showers T chicken noodle soup. Given Tessalon Perles for cough. Reviewed use and side effects of medications. Follow-up if symptoms fail to gradually improve over the next 3-5 days. Seek medical attention sooner if symptoms would persist or worsen. Verbally agrees and understands today's plan of care. No further questions or concerns. Follow up as discussed and reviewed in AVS. Discharged from [facility] in vitally stable condition. Addendum: Telephone call to patient reviewed labs which are reassuring. And Monospot is negative. Follow-up as discussed. Agrees. documented in this encounter Plan of Treatment Not on file documented as of this encounter Procedures Procedure Name Priority Date/Time Associated Diagnosis Comments INFECTIOUS MONONUCLEOSIS, RAPID TEST, S/B STAT 01/07/2023 5:35 PM CDT Fatigue CBC WITH DIFFERENTIAL, B STAT 01/07/2023 5:35 PM CDT Fatigue documented in this encounter Results * Infectious Mononucleosis, Rapid Test (01/07/2023 5:35 PM CDT) Infectious Cumberland Test, B Negative Negative 01/07/2023 5:51 PM CDT NPRG Blood (Blood, Venous) 01/07/2023 5:35 PM CDT 01/07/2023 5:37 PM CDT Danae Treadwell APRN, C.N.P., R.N. LAB [place] CROBIOLOGY - BLOOD ORDERABLES [facility] [address] [place] [address], [facility] NPRG [facility] [address] [place] [address] * CBC with Differential, Blood (01/07/2023 5:35 PM CDT) Hemoglobin 12.5 11.6 - 15.0 g/dL 01/07/2023 5:44 PM CDT NPRG Hematocrit 39.5 35.5 - 44.9 % 01/07/2023 5:44 PM CDT NPRG Erythrocytes 4.41 3.92 - 5.13 x10(12)/L 01/07/2023 5:44 PM CDT NPRG MCV 89.6 78.2 - 97.9 fL 01/07/2023 5:44 PM CDT NPRG RBC Distrib Width 12.9 12.2 - 16.1 % 01/07/2023 5:44 PM CDT NPRG Platelet Count 231 157 - 371 x10(9)/L 01/07/2023 5:44 PM CDT NPRG Leukocytes 5.9 3.4 - 9.6 x10(9)/L 01/07/2023 5:44 PM CDT NPRG Neutrophils 3.93 1.56 - 6.45 x10(9)/L 01/07/2023 5:44 PM CDT NPRG Lymphocytes 1.46 0.95 - 3.07 x10(9)/L 01/07/2023 5:44 PM CDT NPRG Monocytes 0.37 0.26 - 0.81 x10(9)/L 01/07/2023 5:44 PM CDT NPRG Eosinophils 0.17 0.03 - 0.48 x10(9)/L 01/07/2023 5:44 PM CDT NPRG Basophils 0.01 0.01 - 0.08 x10(9)/L 01/07/2023 5:44 PM CDT NPRG Blood (Blood, Venous) 01/07/2023 5:35 PM CDT 01/07/2023 5:37 PM CDT Danae Treadwell APRN C.N.P., R.N. LAB BL OOD ADD-ON [facility] [address] [place] [address], [facility] NPRG [facility] [address] [place] [address] documented in this encounter Visit Diagnoses Diagnosis Sinusitis- Primary Fatigue documented in this encounter Care Teams Catalyst Impregnator Relationship Specialty Start Date End Date Anam Ness D.O. [address] [place] [address] PCP - General Family Medicine 01/03/23 01/20/23 documented as of this encounter
--- OUTSIDE RECORDS SUMMARY | 2023-11-18 11:07 | XMS_ITS | Encounter Summary ---
Author Name Unknown Organization [facility] Address [address] [place] [address] Care Team Providers Care Rn Lpn Cna Name Role Phone Anam Ness D.O. Primary Care Provider [phone] Reason for Visit * Reason Comments Med Refill Encounter Details Date Type Department Care Team (Late st Contact Info) Description 01/17/2023 Refill Department of Family Medicine in [place], [place] [address] [place] [phone] Anam Ness D.O. [address] [place] [phone] Med Refill Social History Tobacco Use Types Packs/Day Years [...] encounter Miscellaneous Notes * Telephone Encounter - Mckenna Curtis David - 01/17/2023 3:00 PM CDT Recent Visits Date Type Provider Dept 01/04/23 Office Visit Anam Ness D.O. [facility] 12/26/22 Office Visit Anam Ness D.O. [facility] Showing recent visits within past 365 days with a meds authorizing provider and meeting all other requirements Future Appointments No visits were found meeting these conditions. Showing future appointments within next 90 days with a meds authorizing provider and meeting all other requirements documented in this encounter Plan of Treatment Not on file documented as of this encounter Visit Diagnoses Diagnosis Counseling Control And Therapy documented in this encounter Care Teams Rn Lpn Cna Relationship Specialty Start Date End Date Anam Ness D.O. [address] [place] [phone] PCP - General Family Medicine 01/03/23 01/20/23 documented as of this encounter
--- OUTSIDE RECORDS SUMMARY | 2023-11-18 11:07 | XMS_ITS ---
Author Name Unknown Organization [facility] Address [address] [place] [address] Care Team Providers Care Packing And Shipping Clerk Name Role Phone Unavailable Unavailable Unavailable Surgery Details Not on file Complications Check Surgery Details section. Procedure Estimated Blood Loss Check Surgery Details section. Procedure Findings Check Surgery Details section. Procedure Specimens Taken Check Surgery Details section.
--- OUTSIDE RECORDS SUMMARY | 2023-11-18 11:07 | XMS_ITS | Referral Summary ---
Author Name Unknown Organization [facility] Address [address] [place] [address] Care Team Providers Care Dry Plasterer Name Role Phone Steve Landeros M.D. Primary Care Provider [phone] Source Comments Patient records contain information from all sites at [facility]. For routine questions regarding patient records, call [phone] during business hours, M-F 8:00 AM - 5:00 PM Central Time. Record requests for emergency care only can be directed to [phone] at any time.[facility] Encounters Date Type Department Care Team Description 11/12/2023 Orders Only [facility] PCP TH MNT Steve Landeros M.D. 09/19/2023 3:30 PM MECHANICAL DESIGN ENGINEER [employer] Office Visit Department of Family Medicine in [place], [place] [address] [place] [address] Steve Landeros M.D. Fatigue (Primary Dx); Counseling Control And Therapy; Abscess Retropharyngeal 09/19/2023 Clinical Communication Department of Family Medicine in [place], [place] [address] [place] [address] Steve Landeros M.D. from Last 3 Months Allergies Active Allergy Reactions Criticality Noted Date [...] Rhinitis Allergic 03/13/2003 Overview: Rhinitis Allergic NOS Immunizations Name Administration Dates Next Due 4vHPV [...] (6 months-35 months) (PF) 08/30/2014,08/11/2013,07/29/2012,2011,09/19/2010,08/24/2009,07/11/2009,1 10/08/2006,07/22/2006,07/20/2005, 004,09/13/2003,08/11/2003 Social History Tobacco Use Types Packs/Day Years [...] Comments Blood Pressure 118/72 09/19/2023 3:29 PM MECHANICAL DESIGN ENG[employer] Pulse 75 09/19/2023 3:29 PM MECHANICAL DESIGN ENG[employer] Temperature 36.7 ??C (98 ??F) 09/19/2023 3:29 PM MECH[employer]ICAL DESIGN ENG[employer] Respiratory Rate 16 06/24/2023 12:55 PM CDT Oxygen Saturation 100% 09/19/2023 3:29 PM MECH[employer]ICAL DESIGN ENG[employer] Inhaled Oxygen Concentration - - Weight 68.9 kg (152 lb) 09/19/2023 3:29 PM MECH[employer]ICAL DESIGN ENG[employer] Height 170 cm (5' 6.93) 09/19/2023 3:29 PM MECHANICAL DESIGN ENG[employer] Body Mass Index 23.86 09/19/2023 3:29 PM MECHANICAL DESIGN ENG[employer] Plan of Treatment Not on file Procedures Procedure Name Priority Date/Time Associated Diagnosis Comments THYROID-STIMULATING HORMONE-SENSITIVE (S-TSH) Routine 09/19/2023 4:12 PM MECH[employer]ICAL DESIGN ENG[employer] Fatigue CBC WITHOUT DIFFERENTIAL, B Routine 09/19/2023 4:12 PM MECHANICAL DESIGN ENG[employer] Fatigue from Last 3 Months Results * CBC without Differential (09/19/2023 4:12 PM MECHANICAL DESIGN ENG[employer]) Hemoglobin 12.7 11.6 - 15.0 g/dL 09/19/2023 7:31 PM MECHANICAL DESIGN ENG[employer] NPRG Hematocrit 38.8 35.5 - 44.9 % 09/19/2023 7:31 PM MECH[employer]ICAL DESIGN [employer] NPRG Erythrocytes 4.30 3.92 - 5.13 x10(12)/L 09/19/2023 7:31 PM ME[employer] DES[employer] NPRG MCV 90.2 78.2 - 97.9 fL 09/19/2023 7:31 PM ME[employer] NPRG RBC Distrib Width 12.5 12.2 - 16.1 % 09/19/2023 7:31 PM [employer] NPRG Platelet Count 268 157 - 371 x10(9)/L 09/19/2023 7:31 PM MECH[employer]ICAL DES[employer] NPRG Leukocytes 7.0 3.4 - 9.6 x10(9)/L 09/19/2023 7:31 PM MECH[employer] DES[employer] NPRG Blood (Blood, Venous) 09/19/2023 4:12 PM MECHANICAL DESIGN ENGINE[employer] 09/19/2023 6:22 PM MECHANICAL DESIGN ENGINE[employer] Steve Landeros M.D. LAB BLOOD ADD-ON Performing Organization Address City/[facility]/ZIP Co de Phone Number [facility] [address] [place] [address], [facility] NPRG [place] [address] [place] [address] * S-TSH (Thyroid-Stimulating Hormone - Sensitive) (09/19/2023 4:12 PM MECHANICAL DESIGN ENG[employer]) TSH, Sensitive 0.9 0.3 - 4.2 mIU/L 09/19/2023 7:23 PM ME[employer] DES[employer] NPRG Blood (Blood, Venous) 09/19/2023 4:12 PM MECHANICAL DESIGN ENG[employer] 09/19/2023 6:22 PM MECHANICAL DESIGN ENG[employer] Steve Landeros M.D. LAB BLOOD ADD-ON [facility] [address] [place] [address], [facility] NPRG [place] [address] [place] [address] from Last 3 Months Advance Directives For more information, please contact: [phone] Latest Code Status on File Code Status [...] Due to: Patient not available Care Teams Dry Plasterer Relationship Specialty Start Date End Date Steve Landeros M.D. [address] [place] [address] PCP - General 09/05/23
--- OUTSIDE RECORDS SUMMARY | 2023-11-18 11:08 | XMS_ITS | Encounter Summary ---
Author Name Unknown Organization [facility] Address [address] [place] [address] Care Team Providers Care Senior Test Analyst Name Role Phone Elsewhere, Pcp Primary Care Provider Unavailabl e Reason for Visit * Reason Comments Other Gastroparesis flare up * Appointment Request (Routine) - Closed Specialty Diagnoses / Procedures Referred By Urbano chavez Referred To Contact Family Medicine Referral ID Status Reason Start Date Expiration Date Visits Re quested Visits Authorized [id number] Closed 12/24/2022 12/24/2023 1 1 Encounter Details Date Type Department Care Team (Latest Contact Info) Description 12/26/2022 1:30 PM CDT Office Visit Department of Family Medicine in [place], [place] [address] [place] [phone] Anam Ness D.O. [address] [place] [phone] Gastroparesis (Primary Dx) Social History Tobacco Use Types Packs/Day Years Used Date Smoking Tobacco: Never Smokeless Tobacco: Never Tobacco Cessation:Counseling Given: Yes Alcohol Use Standard Drinks/Week Comments Yes 0 (1 standard drink = 0.6 oz pur e alcohol) occasional PHQ-2 Answer Date Recorded PHQ-2 Score 0 08/22/2021 Nutrition Answer Date Recorded Nutrition: EVOO Fat [...] Sign Reading Time Taken Comments Blood Pressure 129/80 12/26/2022 1:27 PM CDT Pulse 82 12/26/2022 1:27 PM CDT Temperature 36.5 ??C (97.7 ??F) 12/26/2022 1:27 PM CD T Respiratory Rate - - Oxygen Saturation 99% 12/26/2022 1:27 PM CDT Inhaled Oxygen Concentration - - Weight 66.2 kg (146 lb) 12/26/2022 1:27 PM CDT Height 172.7 cm (5' 7.99) 12/26/2022 1:27 PM CD T Body Mass Index 22.2 12/26/2022 1:27 PM CDT documented in this encounter Patient Instructions * Patient Instructions* Anam Ness D.O. - 12/26/2022 1:30 PM CDT Be sure to follow-up with your primary care provider or Gastroenterology if symptoms do not improve. documented in this encounter Progress Notes * Anam Ness D.O. - 12/26/2022 1:30 PM CDT SUBJECTIVE Chief Complaint Patient presents with Other Gastroparesis flare up HISTORY OF PRESENT ILLNESS: Hunter Butcher is a 22 y.o. female who presents for concerns about gastroparesis. She reports history of gastroparesis unknown reason she is nondiabetic. She has seen [facility] in the past and has had gastric emptying studies. She reports her [place] primary care physician is not available. She is requesting a prescription for Reglan as her primary care physician is out of the office for an exacerbation of gastroparesis. Reports increased abdominal cramping, bloating, nausea without vomiting for past 4 days. She reports recently having difficulty constipation and was impacted over the weekend Reports improved stool impaction. She saw chiropractics and after some E stim she was able to have a bowel movement. She reports no blood in the stool. She has found Reglan to be helpful in the past.She requests something temporary. Current Outpatient Medications: norelgestromin-ethinyl estradiol (XULANE) 150-35 mcg/24 hr patch, Apply 1 patch each week for 11 weeks, then remove for 1 week., Disp: 11 patch, Rfl: 4 acetaminophen (TYLENOL) 500 mg tablet, Take 2 tablets (1,000 mg total) by mouth every 6 (six) hours. (Patient not taking: Reported on 12/26/2022), Disp: , Rfl: methylphenidate HCl (RITALIN) 10 mg tablet, Take 10 mg by mouth 2 (two) times a day with meals., Disp: , Rfl: metoclopramide (REGLAN) 5 mg/5 mL solution, Take 5 mL (5 mg total) by mouth 3 (three) times a day as needed for heartburn., Disp: 150 mL, Rfl: 1 OBJECTIVE VITAL SIGNS: BP 129/80 Pulse 82 Temp 36.5 ??C (Temporal) Ht 172.7 cm Wt 66.2 kg SpO2 99% BMI 22.20 kg/m?? PHYSICAL EXAM: No acute distress ENT: Supple without mass. She has a surgical scar right posterior neck from prior benign mass removal. No adenopathy Heart: Regular Lungs: Clear, breath sounds are equal without wheezes or rales Abdomen: Soft. Bowel sounds are diminished. No guarding or rebound but generally tender. ASSESSMENT / PLAN #1 Gastroparesis Other orders - metoclopramide (REGLAN) 5 mg/5 mL solution; Take 5 mL (5 mg total) by mouth 3 (three) times a dayas needed for heartburn., Starting 12/26/2022, Normal Discussed that I will provide her with temporary prescription for Reglan 5 mg up to 3 times a day as needed. If this does not help symptoms she should return to her primary care provider or Gastroenterology for further evaluation and management. Side effects of Reglan discussed. Reminded that she should stay up-to-date with her well woman care. I advised her that we have a vigorous gynecology department in [place] that can provide that service for her. documented in this encounter Plan of Treatment Not on file documented as of this encounter Visit Diagnoses Diagnosis Gastroparesis- Primary documented in this encounter Care Teams Senior Test Analyst Relationship Specialty Start Date End Date Elsewhere, Pcp PCP - General 12/08/18 01/02/23 documented as of this encounter
--- OUTSIDE RECORDS SUMMARY | 2023-11-18 11:08 | XMS_ITS | Encounter Summary ---
Author Name Unknown Organization [facility] Address [address] [place] [address] Care Team Providers Care Rehabilitation Therapy Aide Name Role Phone Anam Ness D.O. Primary Care Provider [phone] Reason for Visit * Reason Onset Date Comments Sore Throat 01/03/2023 Earache 01/03/2023 Cough 01/03/2023 Encounter Details Date Type Department Care Team (Late st Contact Info) Description 01/03/2023 Nurse Triage Department of Family Medicine in [place], [place] [address] [place] [address] Shyanne Salcedo R.N. [address] [place] [address] Sore Throat; Earache; Cough Social History Tobacco Use Types Packs/Day Years [...] encounter Miscellaneous Notes * Telephone Encounter - Shyanne Salcedo R.N. - 01/03/2023 11:06 AM CDT Chief Complaint / Reason for Call Patient is a 22 y.o. female calling regarding Sore Throat, Earache, and Cough. Assessment Concern: Patient called to schedule an appointment for a sore throat, cough and right ear pain. Throat is main concern with some pink spots to the back of the tongue and throat. Pain a 5-6/10. Has had multiple throat infections in the past per patient. Some raspy, dry cough. No difficulty in breathing. Present for: 2 days Home cares tried: None Calling to request: Appointment The recommended disposition is See a health care provider within 24 hours. Patient was provided scheduling phone number, plan of care, and transferred to scheduling per current [facility] process. Reason for Disposition Earache also present Protocols used: Sore [id number] Home Care * IBUPROFEN (E.G., MOTRIN, ADVIL): Take 400 mg (two 200 mg pills) by mouth every 6 hours. The most you should take each day is 1,200 mg (six 200 mg pills), unless your doctor has told you to take more. SOFT DIET: * Eat a soft diet. * Cold drinks, popsicles, and milk shakes are especially good. Avoid citrus fruits. Patient is able to teach back. documented in this encounter Plan of Treatment Not on file documented as of this encounter Visit Diagnoses Not on filedocumented in this encounter Care Teams Rehabilitation Therapy Aide Relationship Specialty Start Date End Date Anam Ness D.O. [address] [place] [address] PCP - General Family Medicine 01/03/23 01/20/23 documented as of this encounter
--- OUTSIDE RECORDS SUMMARY | 2023-11-18 11:08 | XMS_ITS | Encounter Summary ---
Author Name Unknown Organization [facility] Address [address] [place] [address] Care Team Providers Care Waste Elimination Name Role Phone Anam Ness D.O. Primary Care Provider [phone] Reason for Visit * Reason Comments Sore Throat X 3 days, new job om 90 day probation cant miss work. * Appointment Request (Routine) - Closed Specialty Diagnoses / Procedures Referred By Urbano chavez Referred To Contact Family Medicine Referral ID Status Reason Start Date Expiration Date Visits Re quested Visits Authorized [id number] Closed 01/03/2023 01/03/2024 1 1 Encounter Details Date Type Department Care Team (Late st Contact Info) Description 01/04/2023 8:00 AM CDT Office Visit Department of Family Medicine in [place], [place] [address] [place] [phone] Anam Ness D.O. [address] [place] [phone] Pharyngitis Acute (Primary Dx); Infection Upper Respiratory Social History Tobacco Use Types Packs/Day Years Used Date Smoking Tobacco: Never Passive Smoke Exposure: Never Smokeless Tobacco: Never Tobacco Cessation:Counseling Given: Not Answered Alcohol Use Standard Drinks/Week Comments Yes 0 [...] Sign Reading Time Taken Comments Blood Pressure 111/69 01/04/2023 7:51 AM CDT Pulse 115 01/04/2023 7:51 AM CDT Temperature 36.8 ??C (98.3 ??F) 01/04/2023 7:51 AM CD T Respiratory Rate 18 01/04/2023 7:51 AM CDT Oxygen Saturation 97% 01/04/2023 7:51 AM CDT Inhaled Oxygen Concentration - - Weight 65.1 kg (143 lb 8 oz) 01/04/2023 7:51 AM CDT Height 170.2 cm (5' 7) 01/04/2023 7:51 AM CDT Body Mass Index 22.48 01/04/2023 7:51 AM CDT documented in this encounter Patient Instructions * Patient Instructions* Anam Ness D.O. - 01/04/2023 8:00 AM CDT Try Claritin 10 mg daily to help with these symptoms. The common cold is a viral infection [...] C. difficile infections, diarrhea, and yeast infections. There is no cure for the common cold, but there are things you can do to help you feel better. You should: Drink plenty of fluids. Water, juice, clear broth, or warm lemon water with honey helps loosen congestion and it prevents dehydration. Avoid caffeinated drinks. They can make dehydration worse. Sleep. Adequate sleep is necessary to support your immune system so that you can recover. Get good nutrition. Eat well while you recover. Wash your hands often. Add moisture to the air. Use a humidifier or take a steamy bath. This may help loosen congestion. Avoid smoking or exposure to second hand smoke. Try over the counter cold and cough medications. Follow instructions and stop taking them when no longer needed. Fever, headache, pain or sore throat [x] Acetaminophen (Tylenol??) 500-1000 mg every 4 hours as needed Maximum dose: 3000 mg of acetaminophen in 24 hours. [] Ibuprofen (Advil??, Motrin??) 400 mg every 4 hours as needed Avoid if you have kidney disease, coronary heart disease, heart failure or history of gastric ulcer or gastric surgery. Maximum dose: 2400 mg of ibuprofen in 24 hours. Additional options for sore throat [x] Lozenges or throat spray with benzocaine as needed. [x] Gargle with salt water several times per day. Mix ?? teaspoon of table salt in 8 ounces of warmwater. Sinus drainage, sinus/nose/ear congestion [] Saline nasal spray or saline rinse (Simply Saline???, [place] Nasal [place], Neilmed??) as needed [] Steroid nasal spray (Flonase??, Nasacort??, fluticasone) as directed on package instructions [x] Pseudoephedrine capsules (Sudafed??) as directed on package instructions Avoid if you have high blood pressure, heart disease or take beta-blockers (atenolol, metoprolol, etc.). Do not exceed 240 mg per day. [] Oxymetazoline nasal spray (Afrin??, Sinex???) as directed on package instructions. Do not use longer than 5 days. Cough [] Honey 1-2 teaspoons every 4 to 6 hours as needed [] Cough drops every 4 to 6 hours as needed [] Guaifenesin/dextromethorphan syrup (Robitussin?? DM) as directed on package instructions. Do not take if you take an antidepressant, opioid pain medication, sleeping medication, or antipsychotic medication. [] Benzonatate 100 mg (Tessalon?? Perles) prescription only Do not exceed 6 capsules in 24 hours. Take with a full glass of water. [] Albuterol inhaler (prescription only) puffs every hours as needed for wheezing or shortness of breath. Only recommended for patients with wheezing or history of asthma. Use with spacer. Many ccfe-sqr-vdfpvpa cold medications contain more than one ingredient. For example, a decongestant also may have a pain reliever in it. Read the labels of cold medications to make sure you are not taking too much of any medication. When to contact your health care provider Contact your provider right away if you have any of the following: Symptoms that improved then suddenly got worse. This could be a sign of a bacterial infection. Shortness of breath, wheezing or difficulty breathing. Fever of 100.4 degrees Fahrenheit (38 degrees Celsius) or higher that lasts more than 5 days or fever that returns after not having a fever for 24 to 48 hours. Severe headache not relieved by ultz-lhv-yotdcfy pain relievers. Dry mouth and urinating less than every 8 hours. Severe or new symptoms that worry you. Disclaimer: Recommendations above are intended for use in adults and teens. For dosing recommendations for children, please contact your provider. documented in this encounter Progress Notes * Anam Ness D.O. - 01/04/2023 8:00 AM CDT SUBJECTIVE Chief Complaint Patient presents with Sore Throat X 3 days, new job om 90 day probation cant [employer] work. HISTORY OF PRESENT ILLNESS: Hunter Butcher is a 22 y.o. female who presents for 3 days of sore throat, has been feverish. Some ear pain. Also complains of facial pressure. Took Sudafed last night with some improvement. Has some distant seasonal allergies. No sick contacts. Current Outpatient Medications: methylphenidate HCl (RITALIN) 10 mg tablet, Take 10 mg by mouth as needed., Disp: , Rfl: metoclopramide (REGLAN) 5 mg/5 mL solution, Take 5 mL (5 mg total) by mouth 3 (three) times a day as needed for heartburn., Disp: 150 mL, Rfl: 1 norelgestromin-ethinyl estradiol (XULANE) 150-35 mcg/24 hr patch, Apply 1 patch each week for 11 weeks, then remove for 1 week., Disp: 11 patch, Rfl: 4 acetaminophen (TYLENOL) 500 mg tablet, Take 2 tablets (1,000 mg total) by mouth every 6 (six) hours. (Patient not taking: Reported on 12/26/2022), Disp: , Rfl: OBJECTIVE VITAL SIGNS: BP 111/69 Pulse (!) 115 Temp 36.8 ??C Resp 18 Ht 170.2 cm Wt 65.1 kg SpO2 97% BMI 22.48 kg/m?? PHYSICAL EXAM: Nontoxic appearing ENT: Tympanic membranes are intact. No fluid levels. No erythema. Tonsils are surgically absent with scarring of the tonsillar pillars. There is some erythema without exudate. Soft palate is injected. Heart: Regular Lungs: Clear, no respiratory distress Results for orders placed or performed in visit on 01/04/23 Strep Group A, PCR, Point of Care Result Value Ref Range Strep Group A, PCR, POCT Collected Strep Group A, PCR, Point of Care Result Value Ref Range Strep Group A, PCR, POCT Negative Negative ASSESSMENT / PLAN #1 Pharyngitis Acute - strep test negative. Recommend treat as upper respiratory infection due to virus. Handout dispensed. Return if worsens. -may continue Sudafed and add loratadine 10 mg daily. #2 Infection Upper Respiratory Other orders - Strep Group A, PCR, Point of Care documented in this encounter Plan of Treatment Not on file documented as of this encounter Procedures Procedure Name Priority Date/Time Associated Diagnosis Comments STREP GROUP A, PCR, POCT Routine 01/04/2023 8:11 AM CDT STREP GROUP A, PCR, POCT Routine 01/04/2023 8:07 AM CDT Pharyngitis Acute documented in this encounter Results * Strep Group A, PCR, Point of Care (01/04/2023 8:11 AM CDT) Strep Group A, PCR, POCT Negative Negative 01/04/2023 8:11 AM CDT NPCL 01/04/2023 8:11 AM CDT 01/04/2023 8:26 AM CDT Generic [facility] LAB POCT ORDERABLES - DEVICE [facility] [address] [place] [address], [facility] NPCL [address] [address] * Strep Group A, PCR, Point of Care (01/04/2023 8:07 AM CDT) Strep Group A, PCR, POCT Collected DEFAULT 01/04/2023 8:12 AM CDT NPCL Swab (Throat) 01/04/2023 8:0 7 AM CDT 01/04/2023 8:12 AM CDT Anam Ness D.O. LAB POCT ORDERABLES - DEVICE [facility] [address] [place] [address], [facility] [address] [address] documented in this encounter Visit Diagnoses Diagnosis Pharyngitis Acute- Primary Infection Upper Respiratory documented in this encounter Care Teams Waste Elimination Relationship Specialty Start Date End Date Anam Ness D.O. [address] [place] [address] PCP - General Family Medicine 01/03/23 01/20/23 documented as of this encounter
[2023-11-18] MEDS: 0.9 % SODIUM CHLORIDE 1000 ml 1,000 ML IV (11:27)
[2023-11-18] MEDS: OLANZapine 5 MG/ML inj IVP (11:28)
[2023-11-18 12:01] LABS: Chloride* 103 mmol/L (96-114); Potassium* 3.3 mmol/L (3.6-5.1); Sodium* 138 mmol/L (135-149)
[2023-11-18 12:04] LABS: Anion Gap 20 mEq/L (7-15); Blood Urea Nitrogen* 26 mg/dL (5-24); Carbon Dioxide* 15 mmol/L (20-32); Creatinine* 1.4 mg/dL (0.5-1.5); Est. Creatinine Clearance* 62.12; Estimated Glomerular Filt Rate 54 ml/min; Glucose* 153 mg/dL (60-115)
[2023-11-18 12:05] LABS: Calcium* 10.2 mg/dL (8.4-10.6)
--- NOTE | 2023-11-18 12:36 | PC.NURSE ---
Pt has been sleeping, denies N/V.
[2023-11-18] MEDS: LACTATED RINGERS 1000 ML 1,000 ML IV (13:00)
[2023-11-18 13:13] VITALS: PULSE 75; RESP 16; TEMP 36.7; O2SAT 97
--- NOTE | 2023-11-18 13:15 | PC.NURSE ---
pt resting, denies n/v.
[2023-11-18 13:17] VITALS: BP 140/80
== END 2023-11-18 14:32 | disposition home or self-care (01) ==
PROVIDERS: Emergency Provider Family Medicine; PCP Family Medicine
DX: R11.15 Cyclical vomiting syndrome unrelated to migraine (principal)
CPT/HCPCS: 36415; 80048; 96374; 99284; J7030; J7120